=== PATIENT | male | born 1950 | race Caucasian/White ===

== ENCOUNTER 2017-01-12 12:11 | Inpatient (IN) | payer OTHER, MEDICARE ==
[~2017-01-12] VITALS: Ht 182.9 cm; Wt 104.1 kg
--- NOTE | ~2017-01-12 | CON ---
[place], [place] REPORT OF CONSULTATION NAME: YOCASTA MALIK UNIT #: [id number] ROOM: 520 DOCTOR: CANDIE DICKERSON MDPERRY BIRTHDATE: [birth year] DATE: 01/12/17 PULMONARY CONSULTATION, EVALUATION, AND MANAGEMENT REASON FOR CONSULTATION: Assess the patient for ongoing acute respiratory complaints. HISTORY OF PRESENT ILLNESS: This is a 66-year-old white male who was seen and examined on 01/12/2017. The patient admitted under the care of hospitalist services today as the patient has been reported ongoing symptoms of shortness of breath ongoing for the past 2 weeks. The symptoms of the patient has been noted progressively worse. The shortness of breath has been noted significantly worse associated with coughing with minimal sputum expectoration. It was noted diffuse wheezing for this patient, which occurring at rest and worsened with walking. The patient denies symptoms of chest pain. Denies symptoms of hemoptysis. He has been using oxygen supplementation at home 4 liter nasal cannula and [facility] adjuster. The patient was assessed in the hospital. The patient and has been admitted to the hospital for further medical management. REVIEW OF SYSTEMS: CONSTITUTIONAL: The patient noted symptoms of fatigue and tiredness. Denies symptoms of fever or chills. EYES: Denies any burning, redness, or tenderness. EAR, NOSE, THROAT: No sore throat, hoarseness, otalgia, postnasal drainage. CARDIOVASCULAR SYSTEM: Denies anginal pain, edema or pain of the lower extremities. GASTROINTESTINAL: Denies dysphagia, nausea, vomiting, diarrhea, abdominal pain, hematemesis, melena, or dysphagia. GENITOURINARY: Denies dysuria, suprapubic pain, hematuria, or urinary retention symptoms. MUSCULOSKELETAL: Denies acute joint pain, redness, or tenderness. SKIN: No lesions or rashes. CENTRAL NERVOUS SYSTEM: Denies dizziness, headache, diplopia or syncopal episodes. Remaining systems were reviewed. They were noted all negative. PAST MEDICAL HISTORY: 1. Advanced centrilobular emphysema. 2. Chronic hypoxic respiratory failure, use of oxygen 4 liter nasal cannula. 3. Essential hypertension. SOCIAL HISTORY: The patient lives at home. He has been noted with tobacco use up to 3 packs of cigarettes per day, which has been discontinued 7 years ago. 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 He denies any occupational related pulmonary exposure. Denies history of alcohol use or illicit drug use. FAMILY HISTORY: Father of complications of renal failure. The mother of complication of bronchial asthma. HOME MEDICATIONS: Listed as. 1. Norvasc 5 mg daily. 2. Aspirin 81 mg p.o. daily. 3. Symbicort 160/4.5 two puffs b.i.d. 4. Lisinopril 4 mg daily. [place], [place] REPORT OF CONSULTATION NAME: YOCASTA MALIK UNIT #: [id number] ROOM: [facility] [place] DOCTOR: PERRY SILVERIO MD BIRTHDATE: [birth year] 5. Spiriva 18 mcg inhalation daily. PHYSICAL EXAMINATION: GENERAL: This is a 66-year-old white male who has been currently noted awake and alert with distress and tachypnea at the time of the assessment. VITAL SIGNS: Height for the patient noted as 6 feet, weight of 229 pounds, BMI 31.1. Vital signs otherwise shows the temperature for this patient recorded normal, respiratory rate 26, heart rate of 104, mild sinus tachycardia, blood pressure of 179/85. Pulse oxygen saturation of the patient recorded on 4 L nasal cannula was 97% saturation. HEENT: Head was atraumatic. Eyes nonicterus. NECK: Supple. CARDIOVASCULAR SYSTEM: S1, S2 audible. LUNGS: Diffuse reduction of the breath sounds with expiratory wheezing, no crackles. ABDOMEN: Soft, nontender. Bowel sounds present. EXTREMITIES: No tenderness present. CENTRAL NERVOUS SYSTEM: The patient was noted without any gross focal deficit. Cranial nerves 2-12 intact. MUSCULOSKELETAL: No deformities. LABORATORY DATA: PT, PTT for the patient this morning was noted normal on admission. CBC this morning on admission, WBC count 7.3, hemoglobin 14, hematocrit 43.1 and platelet count was normal 166,000. CMP patient of this morning, BUN and creatinine was normal. CO2 of 38. CK-MB, troponin first set was normal. Lactic acid this morning was 0.9. Chest x-ray shows changes of COPD, hyperinflation of the lungs without any acute infiltration, small plate-like atelectasis patient noted in the lower lungs bilaterally. Arterial blood gas of the patient on 4 liters, pH of 7.32, pCO2 of 70.8, pO2 of 131. IMPRESSION: 1. The patient will be currently admitted to the hospital noted with acute severe exacerbation of chronic obstructive pulmonary disease, acute hypercapnic respiratory failure. 2. History of chronic hypoxic respiratory failure. 3. Chronic metabolic alkalosis secondary to hypercarbia. 4. Respiratory distress noted secondary to acute severe exacerbation of chronic obstructive pulmonary disease. 5. Acute tracheobronchitis with plate-like atelectasis to both lower lungs related to mucus impaction of the airways. 6. Past history of heavy nicotine abuse which has been discontinued 7 years or greater. 7. History of essential hypertension as well. PLAN OF TREATMENT: For further medical management of acute hypercapnic respiratory failure, chronic hypoxic respiratory failure. The patient has been ordered BiPAP with settings of 16/8. BiPAP will be continued on current settings for patient for the next couple of hours after that arterial blood gases will be done for further assessment of the management. The patient has been also ordered the bronchodilators with oxygen supplementation as well. The corticosteroids will be continued for the patient with the current dose. Bronchodilators have been ordered for this patient to be given every 4 hours. Solu-Medrol will be continued at 60 mg q.8 hours. Antibiotic will be continued. Obtain the sputum for Gram stain and culture. Other supportive therapy, plan of management and care. Usual treatment. Further treatment changes plan for this patient's [place], [place] REPORT OF CONSULTATION NAME: YOCASTA MALIK UNIT #: [id number] ROOM: [facility] [place] DOCTOR: PERRY SILVERIO MD BIRTHDATE: [birth year] management will be made for this patient based on the progression of the illness. Thank you for allowing me to participate in the care of this patient. PERRY SILVERIO MD CM:CONSTR:REPORT OF CONSULTATION 1026 01/14/17 1752 GEO JACKSON.[facility]
--- NOTE | ~2017-01-12 | PR ---
[place], [place] PROGRESS NOTE NAME: YOCASTA MALIK UNIT #: [id number] ROOM: 520 DOCTOR: PERRY SILVERIO MD BIRTHDATE: [birth year] DOS: 01/14/2017 PULMONARY FOLLOWUP SUBJECTIVE: He has been noted with copious amount of purulent secretions, expectoration this morning, which was noted nonproductive cough. He was noted with increased edema of the lower extremities as well as the shortness of breath, wheezing was resolving. Denies symptoms of chest pain. OBJECTIVE: VITAL SIGNS: Normal temperature, respiratory rate 20, heart rate 98, blood pressure 124/74. Pulse oxygen saturation on 3 liters on nasal cannula was 98% saturation recorded. HEENT: Examination shows no new change. NECK: Supple. CARDIOVASCULAR: S1, S2 audible. LUNGS: Noted with moderate decreased breath sounds, mild expiratory wheezing. No crackles. ABDOMEN: Soft, nontender. LABORATORY DATA: The blood culture showed no bacterial growth from the . BMP today: BUN 28, creatinine 1.36. IMPRESSION: 1. The patient with acute on chronic hypercapnic hypoxic respiratory failure. 2. Acute exacerbation of chronic obstructive pulmonary disease with severe acute purulent tracheobronchitis. 3. Edema of lower extremity, most likely from congestive heart failure, cor pulmonale combination would be considered. PLAN OF TREATMENT: Diuretic therapy. Monitor kidney function and electrolytes. Order the sputum for Gram stain and culture. Continue current dose of steroids, which was decreased yesterday. Continue bronchodilators and antibiotics. Usual care, other supportive plan of management and other care. [place], [place] PROGRESS NOTE NAME: YOCASTA MALIK UNIT #: [id number] ROOM: 520 DOCTOR: PERRY SILVERIO MD BIRTHDATE: [birth year] PERRY SCHREIBER MD CM:PNTRANS [id number] PERRY DICKERSON MD 01/15/17 0625 interface
--- NOTE | ~2017-01-12 | PN ---
[place], [place] PROGRESS NOTE NAME: YOCASTA MALIK UNIT #: [id number] ROOM: 520 DOCTOR: PERRY SILVERIO MD BIRTHDATE: [birth year] DATE: 01/15/17 PULMONARY PROGRESS NOTE SUBJECTIVE: The patient seen and examined on 01/15/2017. He has been noted with reduction of the respiratory symptoms, reduction of the edema of the lower extremity, coughing has been still noted with purulent sputum expectoration. The sputum culture preliminary results were reviewed and shows normal jocelyn initially. OBJECTIVE: VITAL SIGNS: For the patient which have been recorded showed the temperature noted normal, respiratory rate 18-20, heart rate of 98, blood pressure 142/72-132/72. Intake 1400, output 1700 mL approximately noted. Pulse oxygen saturation on 3 L nasal cannula oxygen supplementation, the saturation was noted as 95% saturation. HEENT: Showed no new change. NECK: Supple. CARDIOVASCULAR: S1, S2 audible. LUNGS: Noted without any wheezing or crackles at the present time. The breaths are noted mildly decreased. ABDOMEN: Soft, nontender. EXTREMITIES: Shows mild edema. LABORATORY DATA: Gram stain of the sputum, moderate white blood cells, epithelial cells with many gram-positive cocci in clusters with rare budding yeast. Preliminary normal jocelyn. BMP: BUN , creatinine 1.38. IMPRESSION: 1. The patient with acute on chronic hypoxic respiratory failure and hypercapnic respiratory failure, responding to treatment very well. 2. Suspected acute congestive heart failure, possible cor pulmonale, responding to treatment. PLAN OF TREATMENT: The patient could be considered discharge the patient on oral antibiotics, bronchodilator. The cultures to be monitored by the primary care attending from the [place] service to make any further change in antibiotics orally as necessary. 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 [place], [place] PROGRESS NOTE NAME: YOCASTA MALIK UNIT #: [id number] ROOM: 520 DOCTOR: PERRY SILVERIO MD BIRTHDATE: [birth year] PERRY SILVERIO MD CM:PNTRANS [id number] PERRY DICKERSON MD 01/18/17 1150 GEO JACKSON.R
--- NOTE | ~2017-01-12 | PR ---
[place], [place] PROGRESS NOTE NAME: YOCASTA MALIK UNIT #: [id number] ROOM: 520 DOCTOR: PERRY SILVERIO MD BIRTHDATE: [birth year] DOS: 01/13/2017 PULMONARY PROGRESS NOTE SUBJECTIVE: He has been noted better from yesterday as the patient has used the BiPAP. Respiratory symptoms for the patient have been improved. The arterial blood gases were done 2 hours post use of the BiPAP also showed improvement in the ventilatory status. OBJECTIVE: VITAL SIGNS: Shows heart rate was noted 91, blood pressure 163/83, respiratory rate 20, temperature was normal. Pulse oxygen saturation recorded on 3 liters nasal cannula 97% saturation. HEENT: Examination shows no new change. NECK: Supple. CARDIOVASCULAR SYSTEM: S1, S2 is audible. LUNGS: Noted with moderate reduction in breath sounds with reduced wheezing. There were no crackles. ABDOMEN: Soft, nontender. LABORATORY DATA: CBC this morning, normal WBC and platelet count, hemoglobin mildly decreased at 13.4. PT/PTT were noted normal today. CK-MB and troponin this morning shows CPK elevated at 640, MB 11.1, unknown significance of that. The troponin for the patient remains normal. IMPRESSION: 1. The patient who has been currently noted with ongoing acute exacerbation of chronic obstructive pulmonary disease with acute hypercapnic and chronic hypercapnic respiratory failure, acute bacterial bronchitis. 2. Chronic hypoxic respiratory failure history as well. Abnormal CPK for this patient and the CK-MB for the patient of unknown significance. PLAN OF TREATMENT: No change in the plan of management, except reduction of the corticosteroid dose has been ordered. Continue the BiPAP use with the bronchodilators, other treatment and the antibiotics. Supportive therapy, other plan of care. Usual treatments. [place], [place] PROGRESS NOTE NAME: YOCASTA MALIK UNIT #: [id number] ROOM: 520 DOCTOR: PERRY SILVERIO MD BIRTHDATE: [birth year] PERRY SCHREIBER MD CM:PNTRANS [id number] PERRY DICKERSON MD 01/13/17 1225 interface
[2017-01-12 12:15] VITALS: BP 161/100
[2017-01-12] MEDS ORDERED: SPIRIVA18 MCG PO (12:44)
[2017-01-12] MEDS ORDERED: SYMBICORT1 AE1 INH (12:45)
[2017-01-12] MEDS ORDERED: AMLODIPINE BESYL5 MG PO (12:45)
[2017-01-12] MEDS ORDERED: LISINOPRIL40 MG PO (12:45)
[2017-01-12] MEDS ORDERED: ASPIRIN FOR CHI81 MG PO (12:45)
[2017-01-12 12:52] LABS: BASO # 0.1 10*3/uL (0.0-0.1); BASO % 0.7 % (0.0-1.0); EOS # 0.1 10*3/uL (0.0-0.4); EOS % 1.9 % (1.0-4.0); HEMATOCRIT 43.1 % (42.0-52.0); IG # 0.1 10*3/uL (0.0-0.1); LYMPH # 1.3 10*3/uL (1.3-4.4); LYMPH % 17.7 % (27.0-41.0); MEAN CELL VOLUME 93.3 fl (80.0-94.0); MEAN CORPUSCULAR HGB 30.3 pg (27.0-31.0); MEAN CORPUSCULAR HGB CONC 32.5 g/dl (33.0-37.0); MONO # 0.8 10*3/uL (0.1-1.0); MONO % 10.7 % (3.0-9.0); NEUT % 68.3 % (47.0-73.0); PLATELET COUNT AUTOMATED 166 10*3/uL (130-400); RED BLOOD COUNT 4.62 10*6/uL (4.50-5.90); RED CELL DISTRI WIDTH 11.9 % (0-14.5); WHITE BLOOD COUNT 7.3 10*3/uL (4.8-10.8)
[2017-01-12 12:56] VITALS: BP 154/80
[2017-01-12 13:02] LABS: INTERNATIONAL NORM RATIO 0.9 (2.0-3.5); PROTHROMBIN TIME 9.6 SECONDS (9.0-12.4)
[2017-01-12 13:08] LABS: ALBUMIN 3.7 gm/dl (3.1-4.5); ALKALINE PHOSPHATASE 88 U/L (45-117); BILIRUBIN, TOTAL 0.5 mg/dl (0.2-1.0); BUN 10 mg/dl (7-24); C-REACTIVE PROTEIN 0.44 MG/DL (0-0.3); CARBON DIOXIDE 38 mmol/L (21-32); CHLORIDE 99 mmol/L (98-107); CPK 169 U/L (39-308); EST GLOM FILT AFRICAN AMERICAN > 60 ml/min; GLUCOSE 103 mg/dL (65-99); MAGNESIUM 1.9 mg/dL (1.5-2.1); POTASSIUM 3.6 mmol/L (3.5-5.1); SGOT/AST 21 IU/L (3-35); SGPT/ALT 17 U/L (12-78); SODIUM 142 mmol/L (136-145); TOTAL PROTEIN 6.9 gm/dL (6.4-8.2)
[2017-01-12 13:09] LABS: TROPONIN I < 0.015 ng/ml (<0.045)
[2017-01-12 13:20] VITALS: BP 179/85
[2017-01-12 14:00] VITALS: BP 167/96
[2017-01-12 15:52] VITALS: BP 140/87
[2017-01-12 16:06] LABS: ABG BASE EXCESS 7.3 mmol/L (-2.0-2.0); ABG CO2 CONTENT 37.8 mmol/L (23-27); ABG HCO3 35.6 mmol/l (22-26); ABG TEMPERATURE 98.7 F (98.0-99.0); ARTERIAL BLOOD GAS PH 7.322 (7.35-7.45)
[2017-01-12 18:29] LABS: CPK 243 U/L (39-308); TROPONIN I < 0.015 ng/ml (<0.045)
[2017-01-12 18:32] LABS: CKMB 5.5 ng/ml (0.5-3.6)
[2017-01-12 19:29] LABS: ABG BASE EXCESS 5.3 mmol/L (-2.0-2.0); ABG TEMPERATURE 97.8 F (98.0-99.0); ARTERIAL BLOOD GAS PH 7.334 (7.35-7.45)
[2017-01-12 20:43] VITALS: BP 155/83
[2017-01-13] VITALS: BP 134/77
[2017-01-13 00:53] LABS: CPK 453 U/L (39-308); TROPONIN I < 0.015 ng/ml (<0.045)
[2017-01-13 00:55] LABS: CKMB 8.7 ng/ml (0.5-3.6)
[2017-01-13 06:22] LABS: BASO % 0.1 % (0.0-1.0); HEMATOCRIT 41.1 % (42.0-52.0); HEMOGLOBIN 13.4 g/dl (14.0-18.0); IG # 0.1 10*3/uL (0.0-0.1); LYMPH # 0.7 10*3/uL (1.3-4.4); LYMPH % 8.9 % (27.0-41.0); MEAN CELL VOLUME 93.2 fl (80.0-94.0); MEAN CORPUSCULAR HGB 30.4 pg (27.0-31.0); MEAN CORPUSCULAR HGB CONC 32.6 g/dl (33.0-37.0); MONO # 0.2 10*3/uL (0.1-1.0); MONO % 2.3 % (3.0-9.0); NEUT % 87.9 % (47.0-73.0); PLATELET COUNT AUTOMATED 195 10*3/uL (130-400); RED BLOOD COUNT 4.41 10*6/uL (4.50-5.90)
[2017-01-13 06:52] LABS: BUN 15 mg/dl (7-24); CARBON DIOXIDE 33 mmol/L (21-32); CHLORIDE 98 mmol/L (98-107); CHOLESTEROL 196 mg/dL (<200); EST GLOM FILT AFRICAN AMERICAN > 60 ml/min; GLUCOSE 155 mg/dL (65-99); HDL CHOLESTEROL 66 mg/dl (40-60); LDL CHOLESTEROL 118 mg/dL (9-159); MAGNESIUM 1.7 mg/dL (1.5-2.1); PHOSPHOROUS 2.5 mg/dL (2.5-4.9); POTASSIUM 3.5 mmol/L (3.5-5.1); SODIUM 139 mmol/L (136-145); TRIGLYCERIDES 60 mg/dl (<150); VLDL CHOLESTEROL 12 mg/dL (6-40)
[2017-01-13 06:56] LABS: INTERNATIONAL NORM RATIO 0.9 (2.0-3.5)
[2017-01-13 06:57] LABS: CPK 640 U/L (39-308)
[2017-01-13 06:58] LABS: TROPONIN I < 0.015 ng/ml (<0.045)
[2017-01-13 07:00] LABS: FREE T4 1.02 ng/dl (0.76-1.46); THYROID STIM HORMONE (HS) 0.941 uIU/ml (0.358-4.75)
[2017-01-13 07:01] LABS: CKMB 11.1 ng/ml (0.5-3.6)
[2017-01-13 08:00] VITALS: BP 163/83
[2017-01-13 09:53] LABS: FOLIC ACID 3.58 ng/mL (>5.38); VITAMIN D, 25-HYDROXY 40.9 ng/mL (30-100)
[2017-01-13 12:00] VITALS: BP 137/74
[2017-01-13 16:00] VITALS: BP 141/74
[2017-01-13 20:00] VITALS: BP 127/79
[2017-01-14 00:05] VITALS: BP 124/66
[2017-01-14 07:05] LABS: CARBON DIOXIDE 38 mmol/L (21-32); CHLORIDE 96 mmol/L (98-107); EST GLOM FILT AFRICAN AMERICAN > 60 ml/min; GLUCOSE 144 mg/dL (65-99); POTASSIUM 3.7 mmol/L (3.5-5.1); SODIUM 142 mmol/L (136-145)
[2017-01-14 07:07] LABS: BUN 28 mg/dl (7-24)
[2017-01-14 08:00] VITALS: BP 124/74
[2017-01-14 10:28] LABS: ABG BASE EXCESS 6.7 mmol/L (-2.0-2.0); ABG CO2 CONTENT 35.1 mmol/L (23-27); ABG HCO3 33.3 mmol/l (22-26); ABG TEMPERATURE 97.7 F (98.0-99.0); ARTERIAL BLOOD GAS PH 7.382 (7.35-7.45)
[2017-01-14 11:45] VITALS: BP 135/83
[2017-01-14 16:00] VITALS: BP 145/86
[2017-01-14 19:41] VITALS: BP 138/61
[2017-01-15] VITALS: BP 142/72
[2017-01-15 06:21] LABS: BUN 37 mg/dl (7-24); CARBON DIOXIDE 39 mmol/L (21-32); CHLORIDE 99 mmol/L (98-107); EST GLOM FILT AFRICAN AMERICAN > 60 ml/min; GLUCOSE 152 mg/dL (65-99); SODIUM 142 mmol/L (136-145)
[2017-01-15 08:00] VITALS: BP 132/72
[2017-01-15] MEDS ORDERED: LEVAQUIN500 M2 PO (11:00)
[2017-01-15] MEDS ORDERED: PREDNISONE50 MG PO (11:00)
[2017-01-15] MEDS ORDERED: KLOR-CON M1010 ME1 PO (11:00)
[2017-01-15] MEDS ORDERED: LASIX40 MG PO (11:00)
[2017-01-15 12:00] VITALS: BP 140/75
== END 2017-01-15 12:00 | disposition home or self-care (01) | DRG 871 ==
LOC: ED 12:11 → 5E 13:18 → EDHOLD 13:18 → 5E 14:11
PROVIDERS: Internal Medicine; Student in an Organized Health Care Education/Training Program
PROC: 5A09357 Assistance with Respiratory Ventilation, Less than 24 Consecutive Hours, Continuous Positive Airway Pressure (ICD-10-PCS; principal; 2017-01-12)
DX: A41.9 Sepsis, unspecified organism (principal); J18.9 Pneumonia, unspecified organism; J96.21 Acute and chronic respiratory failure with hypoxia; J96.22 Acute and chronic respiratory failure with hypercapnia; J44.0 Chronic obstructive pulmonary disease with (acute) lower respiratory infection; J44.1 Chronic obstructive pulmonary disease with (acute) exacerbation; R65.20 Severe sepsis without septic shock; J20.9 Acute bronchitis, unspecified; I10 Essential (primary) hypertension; Z87.891 Personal history of nicotine dependence; Z82.5 Family history of asthma and other chronic lower respiratory diseases; Z84.1 Family history of disorders of kidney and ureter; Z79.82 Long term (current) use of aspirin; Z79.899 Other long term (current) drug therapy

== ENCOUNTER 2017-09-06 10:54 | Inpatient (IN) | payer MEDICARE ==
[~2017-09-06] VITALS: Ht 182.9 cm; Wt 107.1 kg
--- NOTE | ~2017-09-06 | PR ---
[place], [place] PROGRESS NOTE NAME: [facility]IK [id number] UNIT #: [id number] ROOM: [place] [address] DOCTOR: CANDIE DICKRESON MD,PERRY BIRTHDATE: [birth year] DOS: 09/08/2017 SUBJECTIVE: The patient remains on mechanical ventilator overnight. He has not been noted any acute new abnormalities. The mental status, the patient has been noted responding to vocal commands and noted agitated at times. He has been getting sedation with the combination intravenous Diprivan and Versed. The patient remains afebrile, has not been noted with any temperature elevation. Mild hypotension, the patient noted, most likely related to sedation corrected at the present time with adjustment of the Diprivan use. He was continued on IV Solu-Medrol for the patient bronchodilator treatment. The patient's feedings, otherwise noted well tolerated from the orogastric tube. OBJECTIVE: VITAL SIGNS: For the temperature remains normal, respiratory rate 12, height 76-83, blood pressure 117/70-73/45. Pulse oxygen saturation for the patient on 30% oxygen on mechanical ventilator this morning, assist control, volume control as 98% saturation recorded. HEENT: The patient currently intubated. Orogastric tube is in place. NECK: Supple. Head was atraumatic. CARDIOVASCULAR: S1, S2 is audible. LUNGS: The patient has moderate decreased breath sounds with mild scattered expiratory wheezing, no crackles. ABDOMEN: Soft, flat, nontender. EXTREMITIES: Without any edema. LABORATORY DATA: The echocardiogram for the patient that was done for this patient on 09/07/2017 shows small circumferential pericardial effusion with normal left and the right ventricle and trace mitral valve regurgitation. Prealbumin level for the patient this morning was noted at 15. CBC of today, WBC count 11.4, hemoglobin 8.7, hematocrit 27.0, platelet count 228,000. CMP this morning, BUN 31, creatinine 1.32, glucose 153. Phosphorus was 1.9. The calcium was 8.4. The Gram-stain of the endotracheal aspirate moderate white blood cells, no organism. Preliminary cultures were noted, normal jocelyn. The chest x-ray of patient shows endotracheal tube in appropriate position at the present time. The NG tube was noted in the stomach. Changes of severe COPD and emphysema were noted. There was no acute visible gross infiltration. There were no finding of congestive heart failure or pleural effusions visible. The arterial blood gas of the patient, pH of 7.45, pCO2 of 44, pO2 124. IMPRESSION: 1. The patient was being currently noted with an [id number] severe hypercapnic hypoxic respiratory failure as a result of acute exacerbation of chronic obstructive pulmonary disease and acute bronchitis. 2. Moderate protein-calorie malnutrition status as well. 3. Resolving acute kidney injury of the patient gradually as well. 4. History of past nicotine abuse as well. 5. Hypotension. His hypotension related to the Diprivan use. PLAN OF MANAGEMENT: Maximize nutrition support. Stop the sedation on the patient completely at this time until the patient noted fully awake. Once the [place], [place] PROGRESS NOTE NAME: YOCASTA MALIK JR UNIT #: [id number] ROOM: [place] [address] DOCTOR: PERRY SILVERIO MD BIRTHDATE: [birth year] patient noted awake and noted with appropriate mental status, he will be given a trial of CPAP of 5 pressure support or 10 for 2 hours for the assessment of consideration of liberation from mechanical ventilation today. Monitor culture results. Continue ventilator bundle management. Supportive therapy, plan of management. Dose of Solu-Medrol will be decreased. The patient from 60 mg q.8 hours to 40 mg q.8 hours. Continuation of the bronchodilators administration. Discontinue the vancomycin. The patient's lack of the current infection, which has been known for this patient, just bronchitis noted. The Levaquin should suffice for the treatment. There was no evidence of acute pneumonia. Continuation of the DVT prophylaxis and all other ventilator bundle management. Usual care. Monitoring for hypotension. The patient noted further hypotension, use of intravenous fluids will be ordered. Additional treatment changes will be made for the patient based on progression of the illness. Total time, the patient pulmonary critical evaluation and management for today was 35 minutes. PERRY SCHREIBER MD CM:PNTRANS [id number] PERRY DIKCERSON MD 09/09/17 1212 interface
--- NOTE | ~2017-09-06 | PR ---
[place], [place] PROGRESS NOTE NAME: YOCASTA MALIK JR [facility] #: [id number] UNIT #: [id number] ROOM: [facility]- DOCTOR: JOAQUINA CRAIG MD BIRTHDATE: [birth year] DOS: 09/11/2017 NEPHROLOGY NOTE SUBJECTIVE: The patient was seen and examined. Our service was reconsulted for acute kidney injury. Recent events were noted. The patient has a suspected GI bleed and is intubated on sedation. He is now on pressors. He has developed a rise in his creatinine as well as potassium. There also has been some discussions on possible transfer to a tertiary care center. PHYSICAL EXAMINATION: VITAL SIGNS: Showed temperature 98.4, pulse 86, respiratory rate 16, systolic blood pressure is running in the 90s-110s. GENERAL: He is critically ill, intubated, sedated on vent support. HEENT: Shows no JVD. Endotracheal tube is in place. HEART: Normal S1, S2. No rub, thrill or gallop. LUNGS: Diminished breath sounds. No wheeze. ABDOMEN: Soft, nontender. EXTREMITIES: Had trace edema. SKIN: Showed no rash. LABORATORY DATA: Hemoglobin 8.4, white count of 20.6, platelets 262, BUN 69, creatinine 1.65, glucose 156. Sodium 141, potassium 5.7, CO2 of 31, calcium 8.6, phosphorus 3.3, magnesium 2.3, albumin 2.2. IMPRESSION: 1. Acute kidney injury. The patient has had fluctuating creatinine levels. He had acute kidney injury that resolved and now developed worsening renal function once again likely due to prerenal factors with possible intrinsic acute tubular necrosis due to ischemia. Urine output appears to be adequate presently. Would recommend continued hemodynamic support. Dose medication for current creatinine clearance. Avoid further ischemia and avoid nephrotoxic agents. 2. Mild hyperkalemia. Would repeat laboratory data. It is noted he is being started on TPN. Would avoid potassium and TPN for now. 3. Respiratory failure. The patient is on vent support. 4. Shock. He is on pressors. Wean as able. 5. Anemia with question of gastrointestinal bleed. Transfuse as needed. I agree with plans to transfer to a tertiary care center due to the patient's numerous complex issues. [place], [place] PROGRESS NOTE NAME: YOCASTA MALIK JR UNIT #: [id number] ROOM: [facility] DOCTOR: RAFA BURK,JOAQUINA Chanel BIRTHDATE: [birth year] JOAQUINA CRAIG MD CM:PNSIDNEY [phone] JOAQUINA CRAIG MD 09/11/171716 interface
--- NOTE | ~2017-09-06 | PR ---
[place], [place] PROGRESS NOTE NAME: YOCASTA MALIK JR [facility] #: [id number] UNIT #: [id number] ROOM: [facility] DOCTOR: CANDIE DICKERSON MD,PERRY BIRTHDATE: [birth year] DOS: 09/12/2017 SUBJECTIVE: The patient has been noted comfortable at this time, sedated with IV Diprivan combination of Versed and other medications. The GI bleeding seem to be decreased for the patient as the bile material was noted aspirated in the suction container for this patient. He has not been noted any new acute hemodynamic instability, remains on Levophed 12 mcg/min for the hypotension management. The patient was continued on TPN as well for the nutrition support. The Protonix was continued 40 mg IV b.i.d. OBJECTIVE: VITAL SIGNS: For the patient which has been recorded shows temperature remains normal, respiratory rate of 11-14. The heart rate of 110 to 99. The blood pressure of 86/49 to 104/46. Intake for the patient was 4.5 liters, output 2.775 liters, positive 1.737 liters. The pulse oxygen saturation 30% oxygen 96% saturation. HEENT: The patient remained orally intubated. Gastric tube is in place. NECK: Supple. CARDIOVASCULAR: S1, S2 audible. LUNGS: Moderate reduction of the breath sounds noted in the lungs bilaterally. ABDOMEN: Noted chronic moderate obesity. Bowel sounds present without any tenderness. EXTREMITIES: Mild edema. LABORATORY DATA: Blood culture 09/06/2017 was noted as normal. CMP this morning, BUN 62, creatinine 1.45, glucose 208. Potassium 5.4. CBC: WBC count 24.1, hemoglobin 9.6, hematocrit 31.0, platelet count 268,000. The chest x-ray of the patient that was done this morning for routine assessment shows endotracheal tube tip was noted 8 cm above the blake level. The NG tube noted in the stomach. Small pleural fluid was identified on today's chest x-ray. The blood culture for the patient no bacterial growth. The arterial blood gas this morning, 30% oxygen, pH of 7.32, pCO2 of 56, pO2 of 89.9. IMPRESSION: 1. The patient who has been currently admitted to the hospital noted with persistent acute hypercapnia hypoxic respiratory failure. 2. Acute exacerbation of chronic obstructive pulmonary disease. 3. Mild acute kidney injury. 4. Upper gastrointestinal bleeding with suspected most likely secondary to gastritis. 5. Chronic obesity. 6. General anxiety disorder. 7. Anemia, which has been noted stable at the present time. 8. Protein-calorie malnutritional status. PLAN OF TREATMENT: Continue the peripheral parenteral nutrition for this patient with monitoring of fluid overload closely. The dose of the Solu-Medrol will be decreased to 40 mg daily from today. Continuation of the ventilator bundle management. Additional treatment changes will be continued for the patient based on progression of the illness. Mild hyperkalemia for the patient [place], [place] PROGRESS NOTE NAME: YOCASTA MALIK JR UNIT #: [id number] ROOM: [facility] DOCTOR: PERRY SILVERIO MD BIRTHDATE: [birth year] was noted, which has been noted stable. The patient would not require any major intervention at this time. Other usual care and plan of management. The patient not noted a candidate for liberation from mechanical ventilation assessment today because of current ongoing multiple medical illnesses. Small pleural fluid, which were noted the patient on the chest x-ray will be monitored. The endotracheal tube will be advanced about 4 cm for this patient to keep it at an appropriate level to prevent self or accidental extubation. Total time for the patient for pulmonary critical evaluation and management today was 38 minutes. PERRY SCHREIBER MD CM:PNTRANS [id number] PERRY DICKERSON MD 09/12/172301 interface
--- NOTE | ~2017-09-06 | PR ---
[place], [place] PROGRESS NOTE [id number] UNIT #: [id number] ROOM: [facility] DOCTOR: PERRY SILVERIO MD BIRTHDATE: [birth year] DOS: 09/10/2017 PULMONARY CRITICAL CARE EVALUATION AND MANAGEMENT. SUBJECTIVE: The patient remains on mechanical ventilator, has been given Diprivan, the dose has been decreased. The patient was given intermittent Haldol administration. He has been noted with intolerance to the feeding. He was also noted coffee-ground material which are resection of the NG tube at this time. The gastric occult blood was noted as positive. The patient was also noted with significant abdominal distention in the last 24 hours as well with hypoactive bowel sounds. The patient has not been noted with any significant hypotension. The tachycardia noted intermittently. OBJECTIVE: VITAL SIGNS: For the patient which has been recorded showed the temperature 99-98 degree Fahrenheit, respiratory rate of 17-23, heart rate 117-109. The blood pressure 127/66 to 114/66. Intake for the patient was recorded at 2.329 liters, the output was recorded as on 50 mL, pulse of 1.379 liters. Pulse ox saturation 35% oxygen mechanical ventilator, noted 98% saturation. HEENT: The patient remained orally intubated. Head was atraumatic. Eyes: No icterus. NECK: Short and obese. CARDIOVASCULAR: S1, S2 audible. LUNGS: Moderate decreased breath sounds, scattered wheezing. ABDOMEN: Noted with hypoactive bowel sounds. GENITOURINARY: For the patient, unchanged from previously and the patient has been sedated. LABORATORY DATA: CBC of this morning, WBC count 18.8, hemoglobin 9.4, hematocrit 30.3, platelet count 257,000. CMP this morning, BUN 51, creatinine 1.49, glucose 126, potassium was 5.6. Albumin 2.6, total protein of 5.8. Chest x-ray shows endotracheal tube in appropriate position. NG tube in the stomach. Significant hyperinflation changes of emphysema noted without any acute visible pulmonary infiltration, consolidation or any evidence of pleural effusion. IMPRESSION: 1. The patient with persistent acute exacerbation of chronic obstructive pulmonary disease with acute chronic hypercapnic hypoxic respiratory failure as a result of acute bronchitis. 2. Current abdominal distention. The patient with the stool for gastric occult positive noted possibility of GI bleeding would be considered secondary to gastritis or other etiologies. 3. Chronic obesity. 4. Suspected diagnosis of obstructive sleep apnea disorder. 5. Chronic metabolic alkalosis secondary to hypercarbia. PLAN OF TREATMENT: The patient will be continued with mechanical ventilation at this time, would not be considered a candidate for liberation from mechanical ventilation. The patient has been ordered CT scan of the chest, abdomen and [place], [place] PROGRESS NOTE [facility]: [id number] UNIT #: [id number] ROOM: [facility] DOCTOR: CANDIE DICKERSON MD,PERRY BIRTHDATE: [birth year] pelvis by the primary attending. At this time, I would not be making any changes in the patient's treatment which has provided for the respiratory failure management. Continue ventilator bundle management. The Lovenox might need to be discontinued because of current suspected GI bleeding. Mechanical thrombolysis. The patient will be ordered for the DVT prophylaxis. Close monitor hemoglobin and hematocrit. Usual care, other supportive therapy, plan of management and other care to be continued. Continue sedation for comfort. Continue bronchodilators. Total time pulmonary critical evaluation and management was 33 minutes. PERRY SCHREIBER MD CM:PNSIDNEY [id number] PERRY DICKERSON MD 09/10/17 1503 interface
--- NOTE | ~2017-09-06 | PR ---
[place], [place] PROGRESS NOTE NAME: YOCASTA MALIK JR [facility] #: [id number] UNIT #: [id number] ROOM: [facility] DOCTOR: CANDIE DICKERSON MD,PERRY BIRTHDATE: [birth year] DOS: 09/13/2017 SUBJECTIVE: The patient remains on mechanical ventilator. Sedation has been decreased for the patient and the Diprivan was completely discontinued. The patient was noted with somewhat mild tachypnea at that time, but not noted awake at this time. He has been noted with increased edema of the upper and the lower extremities. The patient's GI bleeding seemed to be stopped. At the present time, has not been noted with any further episodes of active hematemesis noted from the NG tube or melena was also recorded. The patient was continued with vasopressor therapy with increased requirement of the Levophed for the patient as well. OBJECTIVE: VITAL SIGNS: For the patient, which has been recorded showed the temperature of 101 degree Fahrenheit rectal temperature, respiratory rate of 14-18, heart rate of 114-127 with sinus tachycardia, blood pressure 82/40 to 105/51. Intake 4000 and the output was 2400 mL; out of that urinary output was 1600 mL, positive 1.614 L. Pulse oxygen 30% oxygen mechanical ventilator noted at 96% saturation. HEENT: The patient is currently intubated. Orogastric tube is in place. NECK: Supple. Head was atraumatic. CARDIOVASCULAR: S1, S2 audible. LUNGS: The patient was noted with mild decreased breath sounds. There was no wheezing or crackles at present time. ABDOMEN: Soft with obesity. EXTREMITIES: Shows 2 to 3+ pitting edema of the upper and lower extremities and also the other parts of the body as well. LABORATORY DATA: CMP this morning: BUN 66, creatinine 1.53, glucose 177. The remaining electrolytes were noted as normal. Normal sodium, potassium, chloride, and carbon dioxide. The CBC this morning: WBC count 26.2, hemoglobin 8.8, hematocrit 29.4, platelet count 274,000. The chest x-ray of the patient that was done, 1 view, this morning was reviewed. Endotracheal tube were noted in appropriate position with small basilar area of atelectasis. The patient was noted without any acute consolidation, infiltration, fluid overload with congestive heart failure. IMPRESSION: 1. The patient has been noted with persistent acute hypercapnic hypoxic respiratory failure with gradual decrease oxygen requirement. The arterial blood gas for the patient this morning, could not be done because of severe edema with several attempts made, which was noted ineffective to get arterial blood gases. 2. Acute exacerbation of chronic obstructive pulmonary disease. 3. Upper gastrointestinal bleed. The patient seemed to be better at this time. 4. Significant fluid overload for the patient was also noted with acute kidney injury. 5. Hypertension, requiring use of the vasopressors. 6. Leukocytosis, multifactorial. PLAN OF MANAGEMENT: The patient's steroids have been already discontinued at [place], [place] PROGRESS NOTE NAME: YOCASTA MALIK JR UNIT #: [id number] ROOM: [facility] DOCTOR: CANDIE DICKERSON MD,PERRY BIRTHDATE: [birth year] the present time completely. He has been currently getting sedation that will be continued to keep the patient comfortable. Bronchodilators to be continued, administered. Look and assess for any additional source of infection. GI to follow the patient for endoscopy clearance. The patient feeding from the orogastric tube will be obtained. In the meantime, continue the patient on TPN administration. In addition, vasopressors might be necessary for the patient to maintain a mean arterial pressure of 65 or greater for adequate perfusion. Other supportive plan of therapy and care. Usual treatment. The patient is not noted a candidate for liberation of mechanical ventilation at the present time. Other supportive therapy, plan of management and care. Usual treatment. Continue monitoring, management by the Nephrology for the patient and also to help with management of the overall fluid overload and current edema. Protein calorie malnutrition, which has been treated currently with nutrition support. Sedation for the comfort. Total time for pulmonary and critical care evaluation and management was 34 minutes. PERRY SCHREIBER MD CM:PNTRANS [id number] PERRY DICKERSON MD 09/14/17110 interface
--- NOTE | ~2017-09-06 | PR ---
[place], [place] PROGRESS NOTE NAME[id number] UN[facility] #: [id number] ROOM: [facility] DOCTOR: CANDIE DICKERSON MD,PERRY BIRTHDATE: [birth year] DOS: 09/11/2017 SUBJECTIVE: The patient seen and examined on 09/01/2017, remains on mechanical ventilator. Sedation has been continued of Haldol and Diprivan combination. Noted comfortable at this time. The orogastric tube remains in place which still was noted with the GI bleeding. The patient has been noted mild hypertension at time, but responding with the use of the intravenous fluid. The patient given 1 extra liter of fluid yesterday intravenously. He has been continued normal saline 100 mL an hour. The patient has been noted without any respiratory problem. No major change in mechanical ventilation was needed in the last 24 hours. The patient remains on hold because of current GI bleeding in the last 24 hours. OBJECTIVE: VITAL SIGNS: For the patient normal temperature, respiratory rate of 16-18, blood pressure of 88/45 to 109/59. Intake is 3.257 liters, output 750 mL. The pulse oxygen saturation on 30% oxygen 97% saturation recorded. HEENT: Examination shows head was atraumatic. Eyes nonicterus. NECK: Supple. CARDIOVASCULAR: S1, S2 audible. LUNGS: The patient was noted with moderate decreased breath sounds in the lungs bilaterally. ABDOMEN: Soft with [id number] obesity. Bowel sounds present. EXTREMITIES: The patient without any acute edema. LABORATORY DATA: Arterial blood gas, the first one was done is a venous gas of the patient. The repeat other arterial blood gas, which is arterial shows pH of 7.38, pCO2 of 50, pO2 118, 35% oxygen supplementation to assist control, volume control mechanical ventilation. Hemoglobin and hematocrit repeated yesterday evening noted, hemoglobin 9.1, hematocrit 29.4 for assessment of the GI bleeding. CMP this morning, BUN 69, creatinine 1.65, glucose 156. Potassium 5.7. Yesterday, CMP: BUN was recorded at 51. At that time, creatinine 1.49. Potassium was 5.6, mildly elevated. The patient had a CT scan of the chest, which was done without contrast, personally reviewed shows evidence of diffuse emphysema changes centrilobular without any acute pulmonary infiltration or other abnormalities. Infrarenal 3.9 x 3.4 cm abdominal aortic aneurysm was reported. CT scan of the abdomen finding. There were no other acute abnormalities described. Mild T8 compression reported of the bone with bony window review as well. IMPRESSION: 1. The patient was being currently noted with persistent acute severe hypercapnic hypoxic respiratory failure. 2. Acute exacerbation of chronic obstructive pulmonary disease, which has been responding to the treatment. 3. The patient with mild hypotension as well. 4. Acute ____ with worsening of the kidney functions related partially due to hypotension for this patient as well as intravascular volume depletion and GI bleeding combination with prerenal component. 5. The patient with moderate obesity. [place], [place] PROGRESS NOTE NAME[facility]: [id number] UNIT #: [id number] ROOM: [facility] DOCTOR: CANDIE DICKERSON MD,PERRY BIRTHDATE: [birth year] 6. Suspected obstructive sleep apnea disorder as well. 7. Gastrointestinal bleeding that still persists. PLAN OF MANAGEMENT: The patient's dose of IV Protonix has been changed to 40 mg b.i.d. GI consultation was requested. The patient was started on a preferred parental nutrition at this time. Other intravenous fluid might need to be discontinued as well to prevent the excessive fluid overload. Other supportive therapy, plan of management and care. Reduce the Solu-Medrol dose to 40 mg b.i.d. at this time as the wheezing has been improving. Continue all other additional ventilator bundle management. Usual care. Supportive therapy, plan of management and care. Continue bronchodilators as well. Titrate to keep the mean arterial pressure of 65 or greater. Management of the hyperkalemia as well. Total time for pulmonary critical evaluation and management was 36 minutes. PERRY SCHREIBER MD CM:PNTRANS [id number] [id number] PERRY DICKERSON MD 09/11/17 1449 interface
--- NOTE | ~2017-09-06 | CON ---
[place], [place] REPORT OF CONSULTATION NAME: [facility]IK JR [facility] [id number] UNIT #: [id number] ROOM: [place] [address] DOCTOR: PERRY SILVERIO MD BIRTHDATE: [birth year] DOS: 09/07/2017 CONSULTATION REQUESTED BY: Hospitalist services. REASON FOR CONSULTATION: Assess the patient with change in mental status, progressive acute hypercapnic and hypoxic respiratory failure, chronic hypercapnic and hypoxic respiratory failure. HISTORY OF PRESENT ILLNESS: An 66-year-old white male who [facility] The patient has been brought to the hospital from home by the ambulance. The patient reported having symptoms of increased shortness of breath and other respiratory symptoms occurring for the past 2 or 3 days. He has been noted with tachypnea with labored breathing and respiratory distress and poor air exchange as described by the EMS. He had been brought to the hospital and also noted with significant hypoxia. The patient was started on 100% oxygen nonrebreather mask. The patient has been admitted to the telemetry floor. He has noted significant hypercapnia with arterial blood gases, has been receiving the BiPAP, which has been refused by the patient intermittently. He has been tried on different setting of the BiPAP, but use of the BiPAP noted quite limited. The patient developed progressive unresponsiveness as he was transferred from the floor to the intensive care unit and noted quite drowsy for the patient with ineffective BiPAP treatment. He has been intubated and started on mechanical ventilation upon my order. Currently, the patient is intubated, started on the mechanical ventilation, assist control, volume control, and mechanical ventilation. Sedation has been given to the patient with the use of intravenous Diprivan as well as Versed p.r.n. administration. The intubation was done by the Anesthesia Department uneventfully. He has been noted with minimal secretion. The patient appeared to be watery, which has been suctioned out from the endotracheal tube for the patient post-intubation. He has not been noted any acute hemodynamic instability at this time post-intubation. The patient has been sedated, noted comfortable at this time. All the consultations contained on this patient history was obtained from review of the medical records by the other physician's note for the patient's primary care attending as well as the nursing notes. PAST MEDICAL HISTORY: 1. Reported with history of COPD, which has been managed at the [place]. 2. History of essential hypertension. 3. Chronic hypoxic respiratory failure, 3 liters of oxygen supplementation at home. PAST SURGICAL HISTORY: Reported as no surgery. SOCIAL HISTORY: The patient was noted with history of past alcohol use, which was discontinued from the past 12 years. The smoking, the patient noted at a younger age, up to 2 packs of cigarettes per day for 50 years. Tobacco cessation has been discontinued, approximately 12 years as listed in the history. [place], [place] REPORT OF CONSULTATION NAME: YOCASTA MALIK JR UNIT #: [id number] ROOM: [place] [address] DOCTOR: CANDIE DICKERSON MD,PERRY BIRTHDATE: [birth year] FAMILY HISTORY: For the patient reported as kidney disease as renal failure in the father and history of asthma in the mother. HOME MEDICATIONS: Listed as use of Norvasc, aspirin, azithromycin, Symbicort, Lasix, lisinopril, prednisone, unknown dose daily, and Spiriva. DRUG ALLERGIES: History was reported as no known drug allergies. PHYSICAL EXAMINATION: GENERAL: An 66-year-old white male patient, will be currently intubated, noted in the Intensive Care Unit comfortable without any distress. His height was recorded by the nursing staff as 6 feet, weight of 186 pounds, BMI 84. VITAL SIGNS: Temperature, the patient was noted 99.2 degree Fahrenheit on admission to normal temperature, respiratory rate range between 24-18. The heart rate was noted mild sinus tachycardia, maximum on admission 117. Current noted 92. Blood pressure ranging between 123/72-149/75. Intake is 1510, the output was 700 mL since last night. The pulse oxygen saturation on 3 liters nasal cannula 96% saturation. HEENT: Examination shows patient currently intubated, endotracheal tube #8-S[place] Leonean. Head was atraumatic. Gastric tube has been inserted. NECK: Supple. CARDIOVASCULAR SYSTEM: S1, S2 audible. LUNGS: The patient was noted without any crackles. Severe reduced breath sounds noted in the lungs bilaterally with moderate expiratory wheezing. There were no crackles. ABDOMEN: The patient was noted as soft, flat, and nontender. EXTREMITIES: The patient has some loss of muscle mass, but there were no focal deformities. SKIN: Visible skin. No lesions or rashes. CENTRAL NERVOUS SYSTEM: Cannot be examined, but the patient has not been reported any central nervous system problem for this patient on admission such as stroke. LABORATORY DATA: The lactic acid on admission yesterday 1.7. PT/PTT yesterday on admission normal. CBC on admission yesterday, WBC count 12.9, hemoglobin 11.3, hematocrit 36.0, platelet count normal. CMP of the patient on 09/06, BUN 25, creatinine 1.40, glucose 110, carbon dioxide 40, chloride of 95, potassium 3.3. Venous duplex of the lower extremities of the patient noted as no evidence of deep venous thrombosis, left lower extremity. Arterial blood gas 09/06, pH of 7.3, pCO2 of 70, pO2 of 147, on 30% oxygen. Arterial blood gas of the patient, pH of 7.29, pCO2 of 74, pO2 of 101 with 3 liter nasal cannula as well. Arterial blood gas of the patient that was done this morning, pH of 7.34, pCO2 of 65, pO2 38 is a venous gas. Arterial blood gas 40% oxygen on mechanical ventilator, 31% of 650 mL with 40% oxygen, pH of 7.38, pCO2 of 54, pO2 149 with assist control, volume control mechanical ventilation. The BMP of this morning, BUN 27, creatinine normal, glucose 165. CO2 of 39. CBC this morning: WBC count normal, hemoglobin 9.4, hematocrit 30.0, platelet count of 211,000, 95% segmented neutrophils. Chest x-ray that was done on admission shows changes of severe advanced COPD and [place], [place] REPORT OF CONSULTATION NAME: [facility]A [facility]IK JR [facility]: [id number] UNIT #: [id number] ROOM: [place] [address] DOCTOR: CANDIE DICKERSON MD,PERRY BIRTHDATE: [birth year] emphysema by the chest x-ray post-intubation. Mechanical ventilation is started the patient noted. Endotracheal tube was noted about 7 or 8 cm above the blake level. IMPRESSION: 1. The patient who has been currently admitted to the hospital with advanced chronic obstructive pulmonary disease with chronic hypoxic respiratory failure, and hypercapnia, presented to the hospital, noted acute severe hypoxic and hypercapnic respiratory failure, change in mental status. Currently intubated and started on mechanical ventilation. 2. Past history of tobacco use, which was discontinued approximately 12 years ago. 3. Acute bronchitis. The patient noted whether viral or bacterial at this time was unclear. 4. Appearance of the protein calorie malnutrition and cachexia for this patient was also noted, most likely secondary to the underlying chronic obstructive pulmonary disease. PLAN OF MANAGEMENT: The patient will be continued on IV Solu-Medrol for the patient high dose. The bronchodilator will be given every 4 hours. Ventilator bundle management for this patient has been ordered. The patient with use of the hepatic ducts rinse, use of IV Protonix and DVT prophylaxis. Order the prealbumin level to determine the nutrition level. Nutrition support was started. The patient with pulmonary care as well. The oxygen supplementation be decreased to maintain a saturation of 92% or greater. The patient's oxygen supplementation be decreased from 40% to 30% based on the current arterial blood gases. All other supportive therapy and plan of management. The endotracheal tube will be advanced by 3.5 cm to keep the tape at the appropriate level, about 3-4 cm above the blake level. Additional change in treatment will be made based on progression of the illness. Monitor culture results and endotracheal aspirates. The patient's pulmonary critical care evaluation and management and consultation. Total time for pulmonary critical care evaluation and management, consultation, and assessment 35 minutes. PERRY SCHREIBER MD CM:CONSTR:REPORT OF CONSULTATION 1136 09/07/17 1457 interface
--- NOTE | ~2017-09-06 | PR ---
[place], [place] PROGRESS NOTE NAME[id number] UNIT #: [id number] ROOM: [place] [address] DOCTOR: CANDIE DICKERSON MD,PERRY BIRTHDATE: [birth year] DOS: 09/09/2017 SUBJECTIVE: The patient remains on mechanical ventilator, sedated. His sedation had been discontinued yesterday. The patient was given a trial of CPAP of 5, pressure support of 10 about 30 minutes later, the patient developed significant agitation with the tachycardia as well as hypoxia. The oxygen supplementation was increased to 50% and same try was given again as the patient switched to assist control mode, volume control, and mechanical ventilation. Conscious sedation this morning. The patient has same episode about 60 minutes later. Currently, the patient receiving the mechanical ventilation, assist control mode with sedation resumed and getting the Diprivan as 40 mcg per gram per weight for the sedation purposes. He has been noted small amount of whitish mucus which has been sectioned out from the endobronchial tree by the nursing and respiratory staff. He remains afebrile as well. OBJECTIVE: VITAL SIGNS: For the patient shows a normal temperature, respiratory rate 12, heart rate 65-83, blood pressure 110/57 to 106/58. Pulse oxygen saturation recorded as 99%, 40% oxygen. HEENT: Examination shows head was atraumatic. Eyes nonicterus. NECK: Supple. CARDIOVASCULAR: S1, S2 audible. LUNGS: The patient was noted without any wheezing or crackles. Expiratory wheezing noted scattered in the lungs with moderate general reduction in the breath sounds. ABDOMEN: Flat, soft, nontender. EXTREMITIES: Without any edema. LABORATORY DATA: Culture endotracheal aspirate. Normal jocelyn from the 12th. CBC this morning, WBC count 11, hemoglobin 8.4, hematocrit 25.9, platelet count 133,000. CMP this morning, glucose 188, BUN 32, creatinine was normal. Total protein 5.2, albumin 2.3. The chest x-ray that was done this morning shows endotracheal tube was assessed. The endotracheal tube tip was noted about 6-7 cm above the blake level. NG tube were noted in the stomach. Changes of COPD, hyperinflation noted without any discrete pulmonary infiltration. IMPRESSION: 1. The patient who has been currently noted with acute severe exacerbation of chronic obstructive pulmonary disease, responding to treatment. 2. Resolving acute changes. The patient with mild azotemia still noted prerenal in origin after the IV hydration. 3. Relatively high riding endotracheal tube. 4. Difficulty of tolerating CPAP mode for assessment of possible liberation from mechanical ventilation trial because of agitation and other reasons. Mild azotemia was also noted. 5. Protein-calorie malnutrition status. PLAN OF TREATMENT: The patient will be started on Haldol 5 mg q. 1 hour next several hours with gradual reduction. Discontinuation of the Diprivan. If the Diprivan discontinued, the patient will be attempted again with the CPAP [place], [place] PROGRESS NOTE NAME: YOCASTA MALIK JR UNIT #: [id number] ROOM: [place] [address] DOCTOR: CANDIE DICKERSON MD,PERRY BIRTHDATE: [birth year] mode tomorrow for assessment readily. The patient on mechanical ventilation if fails that I might consider doing a bronchoscopy as well to help clear out secretions from the endobronchial tree. Continuation of Solu-Medrol. Continue maximizing nutritional status, which has been tolerated. Continue DVT prophylaxis and ventilator bundle management. No change in antibiotic will be needed. Advance the endotracheal tube by 3 cm further down to keep at the appropriate level. The patient's endotracheal tube was advanced previously, but noted again at the previous level prior to the advancement. Supportive therapy, plan of management care and other treatment. Usual medical management, other therapies. Make the changes in the medical management based on progression of the illness. Total time, the patient pulmonary critical evaluation and management for today's management is 32 minutes. PERRY SCHREIBER MD CM:PNTRANS [id number] PERRY DICKERSON MD 09/09/17 1350 interface
--- NOTE | ~2017-09-06 | PR ---
[place], [place] PROGRESS NOTE NAME: YOCASTA MALIK JR UNIT #: [id number] ROOM: [place] [address] DOCTOR: ROSAURA MCCLAIN DOUGLAS BIRTHDATE: [birth year] DOS: 09/07/2017 I was called to intubate the patient in ICU, called for hypercarbia, CO2 of 74. Failed multiple attempts at BiPAP. Most recent setting 12/07. RSI this patient, used 150 mg of propofol, followed by 30 mg of Zemuron and 10 mg of ephedrine. The patient tolerated well. Direct laryngoscopy accomplished, 1 attempt. Positive capnography. Positive bilateral breath sounds and chest x-ray ordered. Vent settings coming from Dr. Hinson and vent management ordered by Dr. Hinson. Jeremy Mcclain CM:PNTRANS [id number] ROSAURA MCCLAIN 09/07/17 1003 interface
--- NOTE | ~2017-09-06 | EKG ---
[place], [place] ELECTROCARDIOGRAM REPORT NAME: YOCASTA MALIK JR UNIT #: [id number] ROOM: [place] [address] DOCTOR: CANDIE DICKERSON MD,PERRY BIRTHDATE: [birth year] DOS: 09/06/2017 The electrocardiogram was done on 09/06/2017 at 11:50 a.m. Sinus tachycardia noted with a heart rate of 108 beats per minute. PERRY SCHREIBER MD CM:EKGRPT:ELECTROCARDIOGRAM REPORT [id number] PERRY DICKERSON MD
--- NOTE | ~2017-09-06 | PR ---
[place], [place] PROGRESS NOTE NAME: [facility]: [id number] UNIT #: [id number] ROOM: [facility] DOCTOR: CANDIE DICKERSON MD,PERRY BIRTHDATE: [birth year] DOS: 09/14/2017 SUBJECTIVE: The patient remains unconscious with decreased responsiveness. He has been noted with some tachypnea on mechanical ventilator. He has been continued with vasopressor therapy and other medical management was continued in the last 24 hours. Family member had decided the patient to have a terminal wean because of the progressive multiple medical illnesses and not responding to the treatment. The patient was assessed at the bedside today. OBJECTIVE: VITAL SIGNS: Showed the temperature rectal 100.2 degrees Fahrenheit, respiratory rate of 24 to 30, heart rate of 114 to 115, blood pressure of 84/40 to 142/60 this morning. HEENT: Currently orally intubated. NECK: Supple. CARDIOVASCULAR: S1, S2 is audible. LUNGS: The patient was noted with moderate general reduction in the breath sounds bilaterally. ABDOMEN: Noted with decreased bowel sounds. EXTREMITIES: The patient noted with a significant area of mottling of the skin of both lower extremities. LABORATORY DATA: CBC today: WBC count 27.5, hemoglobin 8.1, hematocrit 26.3, platelet count 236,000. CMP this morning, BUN 57, creatinine 1.27. AST 45, albumin 2.2. IMPRESSION: 1. The patient who has been currently noted with persistent severe acute hypercapnic hypoxic respiratory failure. 2. Acute brain failure for the patient decreased responsiveness of the patient, possibly due to stroke or other etiology, metabolic encephalopathy would be considered. 3. Mild azotemia secondary to the current third spacing of the fluid. 4. ____. The patient unable to determine exactly the etiology of that. 5. Previous GI bleeding as well. PLAN OF MANAGEMENT: At this time, the patient's care will be considered terminal irreversible patient with multiple ongoing acute progressive multiorgan system injury. Concur with the assessment by the primary care physician. The patient's current terminal wean that could be done today upon desire of the family members. To make the patient more comfortable, he will be started on morphine sulphate 3 mg per hour initially for about an hour with addition of morphine, which was given previously. Once the patient's respiratory rate decreased to a comfortable level, he will be liberated from mechanical ventilation. The patient vasopressor therapy has been already discontinued. All other medication would be discontinued. The Ativan could be given 1 mg q.2 hours p.r.n. for comfort as well or agitation. The assessment and management has been discussed with the patient's family members. Several of them has been present in the room with the patient and they were comfortable with the current decision. [place], [place] PROGRESS NOTE NAME: YOCASTA MALIK JR UNIT #: [id number] ROOM: [facility] DOCTOR: PERRY SILVERIO MD BIRTHDATE: [birth year] PERRY SCHREIBER MD CM:KERRY [id number] PERRY DICKERSON MD 09/15/17 0842 interface
[~2017-09-06 10:54] MED LIST: AMLODIPINE BESYL5 MG PO; ASPIRIN FOR CHI81 MG PO; KLOR-CON M1010 ME1 PO; LASIX40 MG PO; LEVAQUIN500 M2 PO; LISINOPRIL40 MG PO; PREDNISONE5 MG PO; PREDNISONE50 MG PO; SPIRIVA18 MCG PO; SYMBICORT1 AE1 INH
[2017-09-06 11:22] VITALS: BP 110/72
[2017-09-06 11:36] LABS: HEMOGLOBIN 11.3 g/dl (14.0-18.0); MEAN CORPUSCULAR HGB 30.5 pg (27.0-31.0); MEAN CORPUSCULAR HGB CONC 31.4 g/dl (33.0-37.0); MEAN PLATELET VOLUME 10.9 fl (9.6-12.3); PLATELET COUNT AUTOMATED 243 10*3/uL (130-400); RED BLOOD COUNT 3.71 10*6/uL (4.50-5.90); RED CELL DISTRI WIDTH 13.3 % (0-14.5); WHITE BLOOD COUNT 12.9 10*3/uL (4.8-10.8)
[2017-09-06 11:44] LABS: ACT PARTIAL THROMBO TIME 24.3 SECONDS (20.8-31.5); INTERNATIONAL NORM RATIO 0.9 (2.0-3.5)
[2017-09-06 11:53] LABS: PLATELET SUFFICIENCY NORMAL (NORMAL); POLYCHROMASIA SLIGHT; STOMATOCYTE FEW; TOTAL CELLS COUNTED 100 #CELLS
[2017-09-06 11:54] LABS: ALBUMIN 2.9 gm/dl (3.1-4.5); ALKALINE PHOSPHATASE 84 U/L (45-117); BUN 25 mg/dl (7-24); CHLORIDE 95 mmol/L (98-107); LIPASE 104 U/L (73-393); POTASSIUM 3.3 mmol/L (3.5-5.1); SGOT/AST 17 IU/L (3-35); SGPT/ALT 25 U/L (12-78); SODIUM 140 mmol/L (136-145); TOTAL PROTEIN 6.8 gm/dL (6.4-8.2)
[2017-09-06 11:57] LABS: TROPONIN I < 0.015 ng/ml (<0.045)
--- NOTE | 2017-09-06 14:20 | NUR ---
A 66, admitted to 5E, under the services of LESLYE Holley DO with a diagnosis of COPD EXACERBATION AND CELLULITIS OF LEFT LEG. Chief complaint is SHORTNESS OF BREATH AND SWELLING AND REDNESS TO LEFT LEG. Patient arrived via stretcher from ER. Monitor applied. Initial assessment completed. Vital signs taken and recorded. LESLYE HOLLEY DO notified of admission to the unit. Orders received. See assessment for past medical history, medications and allergies. Patient and/or family oriented to unit. [facility]. Clothing/patient valuable form completed. RODRIGUEZ GILL
--- NOTE | 2017-09-06 15:05 | NUR ---
Spoke with Desiree at the [facility] in [facility] regarding need for medication list. States she will fax it over.
--- NOTE | 2017-09-06 15:10 | NUR ---
DR. SCHREIBER NOTIFIED OF CONSULT.
[2017-09-06] MEDS ORDERED: ZITHROMAX250 MG PO (15:11)
[2017-09-06] MEDS ORDERED: LASIX20 MG PO (15:12)
--- NOTE | 2017-09-06 15:35 | NUR ---
Spoke with Dr. Velasquez regarding pt bp of 90/60 and pt SOB, and respiratory therapists statements that pt could not tolerate wearing mask for bipap. Pt is on 4l at this time with a SPO2 of 95%. Asked if he wanted ABG's drawn. States he will order them. Respiratory notified.
[2017-09-06 15:53] LABS: ABG BASE EXCESS 9.1 mmol/L (-2.0-2.0); ABG HCO3 36.6 mmol/l (22-26); ABG O2 SATURATION 99.1 % (95-97); ARTERIAL BLOOD GAS PH 7.337 (7.35-7.45)
--- NOTE | 2017-09-06 15:59 | NUR ---
Dr. Velasquez and Dr. Hinson notified of ABG results obtained. Reviewed results with Dr. Hinson. Dr. Hinson ordered bipap settings 16/10 for 4 hours and repeat ABG's. Notified Dr. Hinson that pt was having trouble tolerating bipap.
[2017-09-06 16:00] VITALS: BP 112/76
[2017-09-06 20:00] VITALS: BP 149/75
--- NOTE | 2017-09-06 20:07 | NUR ---
RESTING AT PRESENT, EYES CLOSED. PT. ON BIPAP AT PRESENT.
--- NOTE | 2017-09-06 20:34 | NUR ---
RESP. HERE TO DO ABG'S. PT. SITTING UP LEANING OVER THE BEDSIDE STAND PURSE LIP BREATHING. VERY POOR AIR EXCHANGE VERY. PT. WAS REMOVED FROM BIPAP PER PT. REQUEST AT THIS TIME WAS PLACED ON 4L O2 NC BY RESPIRATORY.
[2017-09-06 20:48] LABS: ABG BASE EXCESS 9.6 mmol/L (-2.0-2.0); ABG HCO3 36.6 mmol/l (22-26); ABG O2 SATURATION 98.5 % (95-97); ARTERIAL BLOOD GAS PCO2 67.4 mmHg (35-45); ARTERIAL BLOOD GAS PH 7.354 (7.35-7.45)
--- NOTE | 2017-09-06 21:14 | NUR ---
CALLED DR. SCHREIBER AND NOTIFIED HIM OF PT. ABG'S AND CURRENT CONDITION OF PURSE LIPPED, LAYING OVER BEDSIDE TABLE AND VERY POOR AIR EXCHANGE. ORDER RECIEVED TO TRANSFERRED PT. TO KEEP PT. ON BIPAP AND IF NEED BE INTUBATION.
--- NOTE | 2017-09-06 21:30 | NUR ---
2200 MEDICATIONS GIVEN. RESP. HERE TOOK BIPAP TO ICU 10. MLAB HERE DID BLOOD DRAW. PT. TAKEN VIA BED TO ICU 10 WITH BELONGINGS. NURSE TO NURSE REPORT GIVEN.
--- NOTE | 2017-09-06 22:10 | NUR ---
PATIENT ANXIOUS AND SHORT OF BREATH WITH PURSED LIP BREATHING, EXTREMELY DIMINISHED BREATH SOUNDS, GRUNTING WHILE SPEAKING REFUSING BIPAP AND BREATHING TREATMENT. EXPLAINED NEED FOR BREATHING TREATMENT TO OPEN UP AIRWAYS AND BIPAP TO BLOW OFF EXCESS CO2. PATIENT VERBALIZES UNDERSTANDING. DR. WAYNE NOTIFIED OF ANXIOUSNESS WHILE USING BIPAP AND NEW ORDER RECEIVED FOR IV ATIVAN. BREATH SOUNDS LESS DIMINISHED WITH I&E WHEEZES NOTED POST BREATHING TREATMENT. PRODUCTIVE COUGH NOTED. ATIVAN IMMEDIATELY EFFECTIVE TO REDUCE ANXIETY AND BIPAP INITIATED 16/10 FIO2 @ 30% POX DECREASED TO 83% FIO2 INCREASED TO 50% POX INCREASED TO 93% WILL MONITOR. RAMOS SOSA RN
[2017-09-07] VITALS (61 sets, daily range): BP systolic 63–127; BP diastolic 40–101
--- NOTE | 2017-09-07 03:35 | NUR ---
PATIENT PULLED OFF BIPAP MASK AND STATES HE NEEDS TO URINATE. ASSISTED PATIENT TO SIDE OF BED TO USE URINAL, PATIENT DROWSY, MISSED URINAL AND URINATED ON FLOOR. PATIENT ASSISTED BACK INTO BED AND ABG'S OBTAINED FOLLOWING TOLERATING BIPAP WELL FOR APPROXIMATELY 5 HOURS. CRITICAL RESULT RECEIVED FROM LAB OF PCO2 74.6. RAMOS SOSA RN
[2017-09-07 03:57] LABS: ABG BASE EXCESS 6.9 mmol/L (-2.0-2.0); ABG O2 SATURATION 97.4 % (95-97); ARTERIAL BLOOD GAS PH 7.291 (7.35-7.45)
[2017-09-07 04:01] LABS: ARTERIAL BLOOD GAS PCO2 74.6 mmHg (35-45)
--- NOTE | 2017-09-07 04:10 | NUR ---
DR. SCHREIBER NOTIFIED OF WORSENING IN ABG RESULTS DESPITE TOLERATING THE BIPAP WELL FOR APPROXIMATELY 5 HOURS. NEW ORDERS RECEIVED. RAMOS SOSA RN
--- NOTE | 2017-09-07 04:20 | NUR ---
DR. WAYNE HERE AND UPDATED ON PATIENT'S CONDITION AND NEW ORDERS TO INTUBATE PATIENT UPON ANESTHESIA'S ARRIVAL IN AM PER DR. SCHREIBER'S ORDERS. NEED FOR INTUBATION DISCUSSED WITH PATIENT WHO VERBALIZES UNDERSTANDING AND VERBALLY AGREES TO INTUBATION BY ANESTHESIA IN THE AM. NEW ORDER RECEIVED TO MEDICATE PATIENT WITH IV ATIVAN TO DECREASE ANXIETY AND ASSIST PATIENT'S TOLERATION OF BIPAP. ATIVAN IMMEDIATELY EFFECTIVE AND BIPAP PLACED PER RESPIRATORY THERAPY. WILL CONTINUE TO MONITOR PATIENT. RAMOS SOSA RN
[2017-09-07 06:08] LABS: BUN 27 mg/dl (7-24); CHLORIDE 98 mmol/L (98-107); CHOLESTEROL 160 mg/dL (<200); CREATININE 1.22 mg/dL (0.70-1.30); PHOSPHOROUS 3.2 mg/dL (2.5-4.9); SODIUM 140 mmol/L (136-145)
[2017-09-07 06:20] LABS: HDL CHOLESTEROL 48 mg/dl (40-60); LDL CHOLESTEROL 93 mg/dL (9-159); THYROID STIM HORMONE (HS) 0.213 uIU/ml (0.358-4.75); TRIGLYCERIDES 94 mg/dl (<150); VLDL CHOLESTEROL 19 mg/dL (6-40)
[2017-09-07 06:22] LABS: POTASSIUM 4.7 mmol/L (3.5-5.1)
--- NOTE | 2017-09-07 06:50 | NUR ---
DR. CARMONA AWARE OF DR. SCHREIBER'S ORDERS FOR ELECTIVE INTUBATION THIS MORNING. RAMOS SOSA RN
[2017-09-07 06:57] LABS: HEMOGLOBIN 9.4 g/dl (14.0-18.0); MEAN CELL VOLUME 97.4 fl (80.0-94.0); MEAN CORPUSCULAR HGB 30.5 pg (27.0-31.0); MEAN CORPUSCULAR HGB CONC 31.3 g/dl (33.0-37.0); MEAN PLATELET VOLUME 11.1 fl (9.6-12.3); PLATELET COUNT AUTOMATED 211 10*3/uL (130-400); RED BLOOD COUNT 3.08 10*6/uL (4.50-5.90); RED CELL DISTRI WIDTH 13.2 % (0-14.5); WHITE BLOOD COUNT 10.6 10*3/uL (4.8-10.8)
--- NOTE | 2017-09-07 07:00 | NUR ---
AWAITING ANESTHESIA TO INTUBATE. PATIENT IS WEARING THE BIPAP 16/10 50%. PT ALERT & FOLLOWING COMMANDS/AGREEING TO INTUBATION.
[2017-09-07 07:35] LABS: TOTAL CELLS COUNTED 100 #CELLS; TOXIC GRANULATION SLIGHT
--- NOTE | 2017-09-07 07:36 | NUR ---
Inf[employer] consent obtained from patient for elective intubation. Patient intubated with 8 Peruvian endotracheal tube orally X 1 attempts. Patient sedated with ZEMURON & PROPOFOL Respiratory therapy at bedside. Crash cart with emergency drugs available. Endotracheal tube inflated with 10cc's. Lungs auscultated for equality of breath sounds. Tube secured with Head gear at 22cm's. at level of LIP. Patient tolerated procedure WELL. Portable chest X-ray obtained and reviewed for tube placement. Patient connected to ventilator CMV mode, 650 tidal volume, 50 FIO2, 5 PEEP, and 0 pressure support. INTUBATED BY ANESTHESIOLOGY. #16 NEWSOME INSERTED WITHOUT DIFFICULTY & 300cc URINE OBTAINED (SPECIMENS SENT) and #18 OGT PLACED WITHOUT DIFFICULTY. CXR ORDERED AND DONE FOR PLACEMENT. sPUTUM SPECIMEN OBTIANED AND SENT DIPRIVAN STARTED FOR SEDATION HALLE RICHARDS
[2017-09-07 07:37] LABS: PLATELET SUFFICIENCY NORMAL (NORMAL); POLYCHROMASIA SLIGHT
[2017-09-07 07:47] LABS: VITAMIN D, 25-HYDROXY 24.8 ng/mL (30-100)
--- NOTE | 2017-09-07 08:05 | NUR ---
INCREASED DIPRIVAN DRIP TO 50mcg D/T PATIENT AGGITATION & PULLING AT LINES
--- NOTE | 2017-09-07 08:25 | NUR ---
Arterial blood gases drawn from right radial after 2 attempt. The procedure was explained to the patient. The Ernie's test was performed with satisfactory results. The artery was palpated. Xfnyoep-nmzebmeu-uyidugx prep to site. The specimen was obtained and sent to the lab on ice. Digital pressure applied x 5 minutes. Pressure dressing applied. No bleeding or hematoma. Pulses equal bilaterally. HALLE RICHARDS
[2017-09-07 08:38] LABS: ABG BASE EXCESS 7.7 mmol/L (-2.0-2.0); ABG HCO3 34.7 mmol/l (22-26); ABG O2 SATURATION 71.3 % (95-97); ARTERIAL BLOOD GAS PH 7.344 (7.35-7.45)
[2017-09-07 08:42] LABS: ARTERIAL BLOOD GAS PO2 38.7 mmHg (80-90)
--- NOTE | 2017-09-07 08:45 | NUR ---
Arterial blood gases drawn from left brachial after 1 attempt as the last set were venous . The procedure was explained to the patient. The Ernie's test was performed with satisfactory results. The artery was palpated. Xtefemd-wgbjjlbw-pyilixe prep to site. The specimen was obtained and sent to the lab on ice. Digital pressure applied x 5 minutes. Pressure dressing applied. No bleeding or hematoma. Pulses equal bilaterally. HALLE RICHARDS
[2017-09-07 09:08] LABS: ABG BASE EXCESS 6.3 mmol/L (-2.0-2.0); ABG O2 SATURATION 99.2 % (95-97); ARTERIAL BLOOD GAS PCO2 54.3 mmHg (35-45); ARTERIAL BLOOD GAS PH 7.386 (7.35-7.45)
--- NOTE | 2017-09-07 09:50 | NUR ---
Arterial blood gases drawn from left brachial after 1 attempt. The procedure was explained to the patient. The Ernie's test was performed with satisfactory results. The artery was palpated. Zosbszx-fysqsrnr-fzdzckz prep to site. The specimen was obtained and sent to the lab on ice. Digital pressure applied x 5 minutes. Pressure dressing applied. No bleeding or hematoma. Pulses equal bilaterally. diprivan drip at 30MCG d/t pressure down. HALLE RICHARDS
[2017-09-07 09:56] LABS: ABG BASE EXCESS 6.5 mmol/L (-2.0-2.0); ABG HCO3 32.6 mmol/l (22-26); ABG O2 SATURATION 99.1 % (95-97); ARTERIAL BLOOD GAS PCO2 57.1 mmHg (35-45); ARTERIAL BLOOD GAS PH 7.373 (7.35-7.45)
--- NOTE | 2017-09-07 10:00 | NUR ---
Patient is intubated at this time. Discharge plan undecided.
--- NOTE | 2017-09-07 10:00 | NUR ---
Versed given for aggitation. 1015 Versed effective.
[2017-09-07 10:06] LABS: BILIRUBIN NEGATIVE (NEGATIVE); BLOOD NEGATIVE (NEGATIVE); CLARITY CLEAR (CLEAR); COLOR YELLOW (YELLOW); GLUCOSE NEGATIVE (NEGATIVE); KETONE TRACE (NEGATIVE); LEUKO ESTERASE NEGATIVE (NEGATIVE); NITRITE NEGATIVE (NEGATIVE); SPECIFIC GRAVITY 1.025 (1.005-1.030); UROBILINOGEN 0.2 E.U./dl (0.2-1.0)
--- NOTE | 2017-09-07 10:37 | NUR ---
ETT adjusted (inserted 3.5cm) per order of Dr Hinson and no repeat CXR needed. Dr Espinoza here and case discussed. IVF bolus of 400cc started followed by another 1L bolus then call with BP
--- NOTE | 2017-09-07 10:47 | NUR ---
HELENA MANNYOCASTA Irby [id number] Please refer to the physician's history and physical for past medical history, comorbid conditions, and allergies. Diagnosis: CELLULITIS OF LEFT LOWER EXTREMITY COPD EXACERBATI Jesse Score: 18,AT RISK WOUND DESCRIPTIONS: Location of the wound: left ac Type of wound: skin tear Thickness: Partial Size: 2.5cm x 0.3cm x 0.1cm Tunneling: none Undermining: none Sinus Tract: none Presence of Exudate: Serosanguineous Amount: Light Color: Red Odor: None Periwound Skin Appearance: Normal Wound edges: approximated Pain (associated with wound): none at time of assessment How does patient state this happened? pt unable to state how this happened Surface the patient is resting on: XPRT SKIN PREVENTION RECOMMENDATION: 1. Pressure redistribution support surface as appropriate 2. Elevate heels 3. Remove boots/TEDS every shift and reapply 4. Head of bed 30 degrees as tolerated 5. Assess nutrition and hydration 6. Manage moisture 7. Avoid the use of containment devices while in bed 8. Use absorptive products on surfaces limit layers of linens on bed 9. Turn and reposition every 1-2 hours in bed and every 1 hour in chair as tolerated 10. Weight shifts every 15 minutes while up in chair 11. Offloading with pillows or device to keep heels elevated off bed 12. Monitor skin at least every shift 13. Inspect under medical devices twice a day WOUND TREATMENT RECOMMENDATIONS: Skin tear guidelines left ac nss, sureprep, versatel, hydrogel, optifoam gentle.
[2017-09-07 11:13] LABS: BACTERIA 1+
--- NOTE | 2017-09-07 14:52 | NUR ---
TUBE FEEDING STARTED AT 20cc/hr PER ORDERS
--- NOTE | 2017-09-07 16:00 | NUR ---
SENIARIVAN DRIP AT 30mcg/15.3cc. IVF INFUSING VIA ASYMPTOMATIC SITES. NEWSOME FOR SMALL AMOUNTS OF URINE.
--- NOTE | 2017-09-07 17:34 | NUR ---
DIPRIVAN DECREASED TO 25mcg/12.8cc TO SEE IF HE WILL STILL REST. DR ONEIL NOTIFIED OF URINE OUTPUT 100cc IN 4 HOURS.
--- NOTE | 2017-09-07 18:24 | NUR ---
ANSWERING SERVICE FOR DR GALINDO CALLED ABOUT CONSULT.
--- NOTE | 2017-09-07 18:30 | NUR ---
SPOKE WITH DR MATEO CARLIN.
--- NOTE | 2017-09-07 19:00 | NUR ---
MED REC WAS NOT UPDATED THE [facility] THE GIRL FRIEND DID NOT REMEMBER THE BOTTLES OR LIST. PATIENT IS INTUBATED AND UNABLE TO REVIEW, NOTHING IN MED CLAIM HISTORY.
--- NOTE | 2017-09-07 19:20 | NUR ---
24 HOUR CHART CHECK COMPLETED.
--- NOTE | 2017-09-07 19:56 | NUR ---
EXCELLENT BLOOD RETURN NOTED FROM DOPAMINE SITE RAN. BP IMPROVED SINCE ALBUMIN INFUSING AND DOPAMINE AT 5 MICS. WITH ANY CARE, PT BECOMES AGITATED.
--- NOTE | 2017-09-07 23:25 | NUR ---
TOLERATING DECREASE OF DOPAMINE TO 2.5MCG/KG/MIN. MAP REMAINS >65 AND SBP>90 AT THIS TIME. URINE OUTPUT HAS NOTABLY INCREASED AND IS STRAW COLORED.
--- NOTE | 2017-09-07 23:46 | NUR ---
COMPLETE BATH AND BED LINEN CHANGE DONE. PT TOLERATED FAIRLY WELL. VSS.
[2017-09-08] VITALS (25 sets, daily range): BP systolic 73–129; BP diastolic 45–70
--- NOTE | 2017-09-08 04:21 | NUR ---
MORPHINE GIVEN AT 0320 FOR APPEARANCE OF DISCOMFORT AND PT NODDED WHEN ASKED IF HE HAD PAIN IN HIS LEG....APPEARS TO BE EFFECTIVE...PT APPEARS RELAXED. DOPAMINE HAD BEEN TITRATED OFF BUT IS BACK ON AT 2.5MCG/KG/MIN SBP DIPPED INTO THE 70'S. WILL CONTINUE TO MONITOR CLOSELY.
--- NOTE | 2017-09-08 04:49 | NUR ---
EXCELLENT BLOOD RETURN CONTINUES FROM IV SITE WITH DOPAMINE INFUSING. BP NOW 119/64.
[2017-09-08 06:09] LABS: ALBUMIN 2.6 gm/dl (3.1-4.5); ALKALINE PHOSPHATASE 67 U/L (45-117); BASO % 0.2 % (0.0-1.0); BUN 31 mg/dl (7-24); CHLORIDE 105 mmol/L (98-107); CREATININE 1.32 mg/dL (0.70-1.30); HEMOGLOBIN 8.7 g/dl (14.0-18.0); LYMPH # 0.4 10*3/uL (1.3-4.4); LYMPH % 3.8 % (27.0-41.0); MEAN CELL VOLUME 95.1 fl (80.0-94.0); MEAN CORPUSCULAR HGB 30.6 pg (27.0-31.0); MEAN CORPUSCULAR HGB CONC 32.2 g/dl (33.0-37.0); MEAN PLATELET VOLUME 11.1 fl (9.6-12.3); MONO % 8.4 % (3.0-9.0); NEUT # 9.7 10*3/uL (2.3-7.9); NEUT % 85.3 % (47.0-73.0); PHOSPHOROUS 1.9 mg/dL (2.5-4.9); PLATELET COUNT AUTOMATED 228 10*3/uL (130-400); POTASSIUM 4.1 mmol/L (3.5-5.1); RED BLOOD COUNT 2.84 10*6/uL (4.50-5.90); RED CELL DISTRI WIDTH 13.7 % (0-14.5); SGOT/AST 29 IU/L (3-35); SGPT/ALT 24 U/L (12-78); SODIUM 142 mmol/L (136-145); TOTAL PROTEIN 5.8 gm/dL (6.4-8.2); WHITE BLOOD COUNT 11.4 10*3/uL (4.8-10.8)
[2017-09-08 06:10] LABS: FREE T4 1.18 ng/dl (0.76-1.46)
[2017-09-08 06:11] LABS: PREALBUMIN 15 mg/dl (20-40)
[2017-09-08 07:54] LABS: ABG BASE EXCESS 6.3 mmol/L (-2.0-2.0); ABG HCO3 30.5 mmol/l (22-26); ABG O2 SATURATION 98.9 % (95-97); ARTERIAL BLOOD GAS PH 7.455 (7.35-7.45)
--- NOTE | 2017-09-08 08:30 | NUR ---
Patient is intubated at this time. Discharge plan undecided.
--- NOTE | 2017-09-08 08:30 | NUR ---
PT AWAKE AND AGITATED. PT TRYING TO PULL AT ENDOTUBE AND NEWSOME. TRIED TO ORIENT PT TO TIME, PLACE AND VENTILATOR. PT DID NOD YES WHEN I ASKED HIM IF HIS LEFT LEG WAS HURTING. PT'S VSS. MAP 83. IV DOPAMINE CONTINUES AT 2.5 MCG. WHEN CONT. TO MONITOR FOR POSSIBLE TITRATION. RESP. RATE OF 12 AT THIS TIME. LUNG ALANIZ DIM. BILAT. SUCTIONED PT THROUGH ENDOTUBE FOR SMALL AMOUNT OF CLEAR SECRETIONS. OGT PLACEMENT VERIFIED WITH AN AIR BOLUS. 5CC REIDUAL NOTED. INCREASED TUBE FEEDING TO 50CC/HR. ABD. SOFT WITH ACTIVE BOWEL SOUNDS. NEWSOME PATENT FOR STRAW COLORED URINE. LEFT LOWER LEG REDDENED, SWOLLEN AND WARM TO TOUCH. [place] NOTED TO RIGHT LOWER LEG. OLD DRAINAGE NOTED TO LEFT ARM SKIN TEAR DRESSING. BED PLACED IN ROTATION MODE TO TURN PT Q1 HOUR.
--- NOTE | 2017-09-08 09:30 | NUR ---
PT RESTING. EARLIER VERSED AND MORPHINE EFFECTIVE.
--- NOTE | 2017-09-08 10:00 | NUR ---
10 AM LISINIPRIL AND NORVASC HELD. DR COLE NOTIFIED.
--- NOTE | 2017-09-08 10:08 | NUR ---
DR SCHREIBER CALLED IN REGARDING PT. ORDERS RECEIVED TO STOP SEDATION AND WHEN PT IS AWAKE THEN SWITCH VENT SETTINGS TO CPAP 5/10. IV DIPRIVAN PLACED ON HOLD. RESP. THERAPIST NOTIFIED.
--- NOTE | 2017-09-08 10:20 | NUR ---
PT AWAKE,ALERT AND ABLE TO FOLLOW SIMPLE COMMANDS. RESP. RATE 16. HR 84. EDUCATED PT ON CPAP TRIALS AND PT NODDED UNDERSTANDING. RESP. THERAPY CHANGED VENT SETTINGS TO CPAP 5/10 FIO2 CONTIUES AT 30%. WILL CONTIUE TO MONITOR PT.
--- NOTE | 2017-09-08 10:30 | NUR ---
PT'S POX 84%. INFORMED RESP. THERAPY TO INCREAS PT'S FIO2. RESP THERAPY INCREASED FIO2 TO 40%.
--- NOTE | 2017-09-08 10:57 | NUR ---
PT'S HR 125, RESP RATE 35, POX 93%. PT'S FACE IS FLUSHED AND HIS RESP ARE LABORED. RESP. THERAPY PLACED PT BACK TO PREVIOUS VENT SETTINGS AND IV SEDATION RESUMED AT PREVIOUS SETTINGS.
--- NOTE | 2017-09-08 11:25 | NUR ---
FIO2 DECREASED TO 35% FOR POX 97%. PT RESTING. NO ACUTE DISTRESS NOTED AT THIS TIME.
--- NOTE | 2017-09-08 12:12 | NUR ---
VISITOR IN TO SEE PT. UPDATED HER ON PT'S CONDITION AND PLAN OF CARE.
--- NOTE | 2017-09-08 12:48 | NUR ---
UPDATED DR SCHREIBER ON PT NOT TOLERATING CPAP TRIAL. NEW ORDERS RECEIVED.
--- NOTE | 2017-09-08 14:12 | NUR ---
DR ONEIL SPOKE WITH PT'S BROTHER ON THE PHONE AND PT'S GIRLFRIEND, JOHANNA WHO IS HERE R/T PICC LINE INSERTION. BOTH AGREED FOR PICC LINE INSERTION. BELKIS, PICC NURSE IS HERE TO PLACE PICC LINE.
--- NOTE | 2017-09-08 14:42 | NUR ---
LEFT ARM PICC INSERTED PER HOSP. POLICY. STAT CXR ORDERED TO CONFIRM PLACMENT.
--- NOTE | 2017-09-08 15:44 | NUR ---
DR MITCHELL NOTIFIED THAT PICC LINE IS IN PLACE PER RADILOGIST. DR MITCHELL TO PUT IN ORDER THAT WE CAN USE PICC LINE.
--- NOTE | 2017-09-08 18:54 | NUR ---
MEDICATED PT PER PRN ORDER WITH MORPHIINE FOR PT C/O LEFT LOWER LEG PAIN. PT UNABLE TO RATE ON PAIN SCALE R/T INTUBATION.
--- NOTE | 2017-09-08 19:20 | NUR ---
RELIEF OF PAIN WITH EARLIER MORPHINE.
--- NOTE | 2017-09-08 20:46 | NUR ---
MORPHINE GIVEN AT 0 FOR LEG PAIN AND VERSED GIVEN AT 2019 FOR AGITATION WAS EFFECTIVE....PT APPEARS COMFORTABLE/BODY RELAXED.
[2017-09-09] VITALS (24 sets, daily range): BP systolic 86–137; BP diastolic 48–75
--- NOTE | 2017-09-09 00:28 | NUR ---
COMPLETE BATH AND BED LINEN CHANGE DONE. VSS. VERSED AND MS GIVEN AT 2355 WAS EFFECTIVE FOR AGITATION AND LT LEG PAIN.
[2017-09-09 05:11] LABS: ABG BASE EXCESS 4.4 mmol/L (-2.0-2.0); ABG HCO3 29.4 mmol/l (22-26); ABG O2 SATURATION 95.8 % (95-97); ARTERIAL BLOOD GAS PCO2 47.9 mmHg (35-45); ARTERIAL BLOOD GAS PH 7.402 (7.35-7.45); ARTERIAL BLOOD GAS PO2 74.3 mmHg (80-90)
--- NOTE | 2017-09-09 05:15 | NUR ---
MORPHINE FOR PAIN AND VERSED FOR AGITATION GIVEN AT 0500 EFFECTIVE...PT BODY RELAXED.
[2017-09-09 06:09] LABS: HEMATOCRIT 25.9 % (42.0-52.0); HEMOGLOBIN 8.4 g/dl (14.0-18.0); MEAN CELL VOLUME 95.6 fl (80.0-94.0); MEAN CORPUSCULAR HGB CONC 32.4 g/dl (33.0-37.0); MEAN PLATELET VOLUME 11.3 fl (9.6-12.3); PLATELET COUNT AUTOMATED 233 10*3/uL (130-400); RED BLOOD COUNT 2.71 10*6/uL (4.50-5.90); RED CELL DISTRI WIDTH 13.9 % (0-14.5)
[2017-09-09 06:31] LABS: ALBUMIN 2.3 gm/dl (3.1-4.5); BUN 32 mg/dl (7-24); CHLORIDE 108 mmol/L (98-107); PHOSPHOROUS 2.8 mg/dL (2.5-4.9); POTASSIUM 4.2 mmol/L (3.5-5.1); SGOT/AST 39 IU/L (3-35); SGPT/ALT 24 U/L (12-78); SODIUM 144 mmol/L (136-145)
[2017-09-09 06:33] LABS: ALKALINE PHOSPHATASE 66 U/L (45-117); TOTAL PROTEIN 5.2 gm/dL (6.4-8.2)
--- NOTE | 2017-09-09 06:55 | NUR ---
IV SEDATION PLACED ON HOLD FOR CPAP TRIALS WHEN PT IS AWAKE AND ALERT.
[2017-09-09 07:05] LABS: PLATELET SUFFICIENCY NORMAL (NORMAL); POLYCHROMASIA SLIGHT; TOTAL CELLS COUNTED 100 #CELLS
--- NOTE | 2017-09-09 07:17 | NUR ---
PT IS AWAKE AND ALERT. PT PLACED TO CPAP 5/10 BY RESP. THERAPY. FIO2 INCREASED TO 40%. HR 87, BP 114/61, RESP 17, POX 99% ON 40%. INSTRUCTED PT THAT CPAP TRIALS AND EDUCATED PT AGAIN ON HOW THEY WORK. PT AGITATED AND POUNDING ON BEDRAILS. TRIED TO CALM PT BUT PT REMAINS AGITATED.
--- NOTE | 2017-09-09 07:25 | NUR ---
PT AGITATED AND POUNDING ON RAILS. HR 114, RESP RATE 29, POX 96%. SPOKE WITH PT ABOUT TRYING TO STAY CALM DURING CPAP TRIALS. PT REMAINS AGITATED.
--- NOTE | 2017-09-09 07:59 | NUR ---
PT POUNDING ON RAILS AND TRYING TO SIT STRAIGHT UP IN BED. TRIED TO REPOSITION PT AND PT REFUSED. SUCTIONED PT FOR LARGE AMOUNT OF ORAL SECRETIONS. PT REMAINS AGITATED.
--- NOTE | 2017-09-09 08:10 | NUR ---
PT HR 123, RESP RATE 30. POX 88%. FIO2 INCREASED TO 50%. ENCOURAGED PT TO TRY AND TAKE SLOW DEEP BREATHS.
--- NOTE | 2017-09-09 08:22 | NUR ---
HR 126, RESP RATE 38, POX 93% ON 50% FIO2. PT'S RESP. LABORED, FACE IS FLUSHED, PT NOT RESPONDING WELL HE HAD PREVIOUSLY. RESP. THERAPY PLACED PT BACK TO PREVIOUS VENT SETTINGS. IV DIPRIVAN RESUMED AT PREVIOUS SETTING. WILL CONTINUE TO MONITOR PT.
--- NOTE | 2017-09-09 09:00 | NUR ---
Patient is intubated at this time. Discharge plan undecided.
--- NOTE | 2017-09-09 09:27 | NUR ---
DR SCHREIBER IN TO SEE PT. UPDATED HIM ON LAB RESULTS AND PT FAILING CPAP TRIALS.
--- NOTE | 2017-09-09 10:08 | NUR ---
PT RESTING. NO DISTRESS NOTED AT THIS TIME.
--- NOTE | 2017-09-09 10:42 | NUR ---
PT AGITATED. MEDICATED PT PER PRN ORDER WITH HALDOL.
--- NOTE | 2017-09-09 10:57 | NUR ---
PT C/O LEFT LOWER LEG PAIN. MEDICATED PT PER PRN ORDER WITH MORPHINE. PT INTUBATED AND UNABLE TO RATE PAIN ON PAIN SCALE AT THIS TIME.
--- NOTE | 2017-09-09 11:15 | NUR ---
PT RESTING. EARLIER HALDOL AND MORPHINE EFFECTIVE.
--- NOTE | 2017-09-09 11:37 | NUR ---
DR GALINDO IN TO SEE PT. UPDATED HIM ON PT'S CONDITION AND PLAN OF CARE. DR GALINDO IS SIGNING OFF OF CASE.
--- NOTE | 2017-09-09 12:31 | NUR ---
PT VERY AGITATED. IV HALDOL GIVEN PER PRN ORDER.
--- NOTE | 2017-09-09 12:31 | NUR ---
PT AGITATED AGAIN. IV HALSOL GIVEN PER PRN ORDER.
--- NOTE | 2017-09-09 13:00 | NUR ---
PT RESTING. EARLIER HALDOL SEEMS EFFECTIVE.
--- NOTE | 2017-09-09 13:40 | NUR ---
PRN HALDOL GIVEN TO PT FOR HIS AGITATION.
--- NOTE | 2017-09-09 14:32 | NUR ---
EARLIER HALDOL NOT EFFECTIVE. MEDICATED PT AGAIN WITH IV HALDOL FOR HIS CONTINUED AGIATION. PT'S GIRLFRIEND AT BEDSIDE. I GAVE HER PT'S RING THAT I HAD TAKEN OFF OF HIS FINGER THE DAY BEFORE DUE TO EDEMA OF FINGERS.
--- NOTE | 2017-09-09 14:40 | NUR ---
SARAH, RESPDexter THERAPIST ADVANCED PT'S ENDOTUBE 3CM PER ORDER OF DR SCHREIBER.
--- NOTE | 2017-09-09 15:34 | NUR ---
DR CANDIE MONSIVAISON PT'S CONTINUED AGITATION. MEDICATED PT PER PRN ORDER WITH HALDOL FOR PT'S AGITATION. EARLIER HALDOL INEFFECTIVE.
--- NOTE | 2017-09-09 16:05 | NUR ---
PT C/O PAIN TO LEFT LOWER LEG. MEDICATED PT PER PRN ORDER WITH IV MORPHINE. PT REMAINS AGITATED EARLIER HALDOL INEFFECTIVE.
--- NOTE | 2017-09-09 16:30 | NUR ---
PT STATES RELIEF OF LEG PAIN WITH EARLIER MORPHINE.
--- NOTE | 2017-09-09 16:58 | NUR ---
MEDICATED PT PER PRN ORDER WITH HALDOL FOR PT'S CONTINUED AGITAITON.
--- NOTE | 2017-09-09 17:58 | NUR ---
MEDICATED PT PER PRN ORDER WITH HALDOL FOR PT'S CONTIUED AGITATION.
--- NOTE | 2017-09-09 18:21 | NUR ---
PT REMAINS RESTLESS BUT NOT AGITATED. HALDOL SOMEWHAT EFFECTIVE AT PRESENT TIME.
--- NOTE | 2017-09-09 19:50 | NUR ---
HALDOL GIVEN FOR AGITATION.
--- NOTE | 2017-09-09 20:31 | NUR ---
OG TUBE FEED RESIDUAL 360CC. TUBE FEED SHUT OFF AT THIS TIME.
--- NOTE | 2017-09-09 20:50 | NUR ---
HALDOL EFFECTIVE. PATIENT ASLEEP.
--- NOTE | 2017-09-09 21:19 | NUR ---
24 HR chart check completed.
--- NOTE | 2017-09-09 21:31 | NUR ---
HALDOL GIVEN FOR AGITATION.
--- NOTE | 2017-09-09 22:30 | NUR ---
PATIENT ASLEEP. HALDOL EFFECTIVE.
--- NOTE | 2017-09-09 22:39 | NUR ---
PATIENT PULLING AT RESTRAINTS AND HITTING SIDE RAILS. HALDOL GIVEN.
--- NOTE | 2017-09-09 23:30 | NUR ---
PATIENT ASLEEP. HALDOL EFFECTIVE.
--- NOTE | 2017-09-09 23:42 | NUR ---
TUBE FEED RESTARTED AT 20ML/HR. WILL MONITOR FOR RESIDUAL. WILL INCREASE RATE TOLERATED.
--- NOTE | 2017-09-09 23:50 | NUR ---
PATIENT HITTING SIDE RAILS/ PULLING ON WRIST RESTRAINTS. HALDOL GIVEN.
[2017-09-10] VITALS (47 sets, daily range): BP systolic 66–129; BP diastolic 33–77
--- NOTE | 2017-09-10 00:29 | NUR ---
PATIENT ASLEEP. NO SIGNS OF AGITATION. HALDOL EFFECTIVE.
--- NOTE | 2017-09-10 01:47 | NUR ---
PATIENT PULLING AT RESTRAINTS. HALDOL GIVEN.
--- NOTE | 2017-09-10 02:04 | NUR ---
PATIENT ASLEEP. HALDOL EFFECTIVE. DIPROVAN DECREASED.
--- NOTE | 2017-09-10 04:01 | NUR ---
PATIENT PULLING RESTRAINTS. ATTEMPTED TO SWING AT ME DURING TURNING. HALDOL GIVEN AT THIS TIME.
[2017-09-10 04:26] LABS: HEMATOCRIT 30.3 % (42.0-52.0); HEMOGLOBIN 9.4 g/dl (14.0-18.0); MEAN CELL VOLUME 98.1 fl (80.0-94.0); MEAN CORPUSCULAR HGB 30.4 pg (27.0-31.0); MEAN PLATELET VOLUME 11.1 fl (9.6-12.3); NUCLEATED RED BLOOD CELL 0.1 % (0.0-0.0); PLATELET COUNT AUTOMATED 257 10*3/uL (130-400); RED BLOOD COUNT 3.09 10*6/uL (4.50-5.90); RED CELL DISTRI WIDTH 14.4 % (0-14.5); WHITE BLOOD COUNT 18.8 10*3/uL (4.8-10.8)
[2017-09-10 04:42] LABS: ALBUMIN 2.6 gm/dl (3.1-4.5); CREATININE 1.49 mg/dL (0.70-1.30); PHOSPHOROUS 3.9 mg/dL (2.5-4.9); TOTAL PROTEIN 5.8 gm/dL (6.4-8.2)
--- NOTE | 2017-09-10 04:49 | NUR ---
RESIDUAL 100ML. TUBE FEED PLACED BACK ON HOLD.
--- NOTE | 2017-09-10 04:51 | NUR ---
PATIENT ADEQUATELY SEDATED. HALDOL EFFECTIVE.
[2017-09-10 04:57] LABS: TOTAL CELLS COUNTED 100 #CELLS
[2017-09-10 05:00] LABS: PLATELET SUFFICIENCY NORMAL (NORMAL); POLYCHROMASIA SLIGHT
[2017-09-10 05:01] LABS: POTASSIUM 5.6 mmol/L (3.5-5.1)
[2017-09-10 05:32] LABS: ABG BASE EXCESS 4.6 mmol/L (-2.0-2.0); ABG HCO3 31.1 mmol/l (22-26); ABG O2 SATURATION 97.6 % (95-97); ARTERIAL BLOOD GAS PCO2 60.6 mmHg (35-45); ARTERIAL BLOOD GAS PH 7.329 (7.35-7.45)
--- NOTE | 2017-09-10 07:43 | NUR ---
MED REC NOT REVIEWED PATIENT INTUBATED & NOTHING IN MED CLAIM HISTORY.
--- NOTE | 2017-09-10 07:45 | NUR ---
Shift chart check completed.
--- NOTE | 2017-09-10 08:45 | NUR ---
Invoice Clerk in to see patient. He remains on a vent. Discharge plan undecided at this time.
--- NOTE | 2017-09-10 09:13 | NUR ---
DR ONEIL HERE AND MADE AWARE OF NO BOWEL MOVEMENT & THAT MOM WAS GOING TO BE GIVEN THEN CALLED BACK TO THE ROOM AND SHOWN THAT THE RESIDUAL FROM THE OGT IS REDDISH/BROWN & CONCERN FOR BLEED. ASPIRIN/LOVENOL/MOM HELD. PRN MORPHINE GIVEN FOR PATIENT C/O HEAD PAIN. DIPRIVAN HAS BEEN OFF FOR 20 MINUTES AND THE PATIENE'S O2 SATURATIONS HAVE HELD MID 90'S BUT HIS RESP HAVE INCREASED TO 30 AND DIPRIVAN RESTARTED. RATE IS NOW 20mcg. ivf HUNG PER ORDERS VIA LEFT ARM PICC LINE WITH ALL PORTS PATENT. HOB ELEVATED AND TUBE FEEDING IS OFF. GEN DEPENDENT EDEMA OF BILAT HANDS. LEFT LOWER LEG CELLULITIS MUCH IMPROVED FROM ADMISSION. DRESSING TO LEFT ARM SECURE & PATENT.
--- NOTE | 2017-09-10 09:30 | NUR ---
Dr Hinson here. No changes to Ventilator today. Awaiting Gastrocult results.
--- NOTE | 2017-09-10 10:08 | NUR ---
KUNiles done at bedside. Dr Velasquez called with gastrocult results being positive,.
--- NOTE | 2017-09-10 10:19 | NUR ---
HALDOL GIVEN FOR AGGITATION/ DIPRIVAN AT 10mcg. BLOOD PRESSURE RUNNING INTO THE 80'S SYSTOLIC
--- NOTE | 2017-09-10 11:10 | NUR ---
RETURNED FROM RADIOLOGY AFTER CT SCANS COMPLETED.
--- NOTE | 2017-09-10 11:39 | NUR ---
HALDOL GIVEN FOR CONTINUED RESTLESSNESS / DIPRIVAN REMAINS AT 10mcg. BLOOD PRESSURE DROPPING INTO THE 70'S
--- NOTE | 2017-09-10 13:40 | NUR ---
MEDICATED AGAIN FOR RESTLESSNESS WITH HALDOL. BLOOD PRESSURE REMAINS SYSTOLIC 70-90.
--- NOTE | 2017-09-10 14:28 | NUR ---
MAINTAIN NPO STATUS FOR TODAY - CONTINUE TO HOLD TUBE FEEDINGS. MAINTAIN OGT TO LIS.
--- NOTE | 2017-09-10 15:07 | NUR ---
PATIENT REMAINS EXTREMELY RESTLESS. HALDOL AGAIN GIVEN. OGT HOOKED TO LOW CONTINUOUS SUCTION FOR 2 MINUTES AND 200cc RED/BROWN DRAINAGE OBTAINED. FLUID BOLUS INFUSING. DR FERRER AWARE OF DR CANDIE PEREZ.
--- NOTE | 2017-09-10 15:35 | NUR ---
PATIENT REMAINS RESTLESS BUT SLIGHT IMPROVEMENT.
--- NOTE | 2017-09-10 15:59 | NUR ---
HALDOL GIVEN FOR AGGITATION - ATTEMPTED TO GRAB RN. REASSURANCE MET WITH RESISTANCE. DIPRIVAN INCREASED TO 20mcg/10ml VIA PICC LINE - FLUID BOLUS CONTINUES
--- NOTE | 2017-09-10 17:00 | NUR ---
SPOKE WITH DR FERRER ABOUT NEEDING TO RESTART DOPAMINE FOR BLOOD PRESSURE THE PATIENT IS UNABLE TO RELAX AND IS BECOMING AGGRESSIVE AND TRYING TO GET TO THE LINES TO PULL. PULLING AT RESTRAINTS. DIPRIVAN INCREASED TO 30 MCG TO ATTEMPT TO CALM PATIENT & HOURLY HALDOL NOT EFFECTIVE AT THIS TIME. IF BLOOD PRESSURE DOES NOT TOLERATE THE LOWER DOSE VERSED THEN NOTIFY HER AND WE MAY START LEVOPHED.
--- NOTE | 2017-09-10 17:18 | NUR ---
DR SAEED CALLED AND INFORMED ABOUT BLOOD PRESSURE DROPPING AFTER INCREASING DIPRIVAN AND THAT WAS TAKEN JUST AFTER VERSED.
--- NOTE | 2017-09-10 17:38 | NUR ---
LEVOPHED HUNG PER ORDERS FOR HYPOTENTION.
--- NOTE | 2017-09-10 17:47 | NUR ---
LEVOPHED INCREASED TO 12mcg/90cc FOR HYPOTENTION
[2017-09-10 19:13] LABS: HEMATOCRIT 29.4 % (42.0-52.0); HEMOGLOBIN 9.1 g/dl (14.0-18.0)
--- NOTE | 2017-09-10 21:28 | NUR ---
PATIENT GIVEN HALDOL FOR AGITATION. PATIENT TRYING TO SIT UP WHILE INTUBATED.
--- NOTE | 2017-09-10 23:21 | NUR ---
PATIENT TURNING HEAD AND TRYING TO REAH FOR ET TUBE. PATIENT GIVEN HALDOL PER ORDER FOR AGITATION
[2017-09-11] VITALS (97 sets, daily range): BP systolic 88–137; BP diastolic 42–71
--- NOTE | 2017-09-11 00:19 | NUR ---
PATIENT STILL TRYING TO SIT UP PATIENT GIVEN PRN HALDOL.
[2017-09-11 04:48] LABS: ABG BASE EXCESS 4.6 mmol/L (-2.0-2.0); ABG HCO3 30.8 mmol/l (22-26); ABG O2 SATURATION 63.2 % (95-97); ARTERIAL BLOOD GAS PCO2 58.7 mmHg (35-45); ARTERIAL BLOOD GAS PH 7.338 (7.35-7.45)
[2017-09-11 05:02] LABS: ABG BASE EXCESS 4.1 mmol/L (-2.0-2.0); ABG HCO3 29.4 mmol/l (22-26); ABG O2 SATURATION 98.6 % (95-97); ARTERIAL BLOOD GAS PCO2 50.2 mmHg (35-45); ARTERIAL BLOOD GAS PH 7.383 (7.35-7.45)
[2017-09-11 06:04] LABS: HEMOGLOBIN 8.4 g/dl (14.0-18.0); MEAN CELL VOLUME 97.5 fl (80.0-94.0); MEAN CORPUSCULAR HGB 30.3 pg (27.0-31.0); MEAN CORPUSCULAR HGB CONC 31.1 g/dl (33.0-37.0); MEAN PLATELET VOLUME 11.5 fl (9.6-12.3); NUCLEATED RED BLOOD CELL 0.1 % (0.0-0.0); PLATELET COUNT AUTOMATED 262 10*3/uL (130-400); RED BLOOD COUNT 2.77 10*6/uL (4.50-5.90); RED CELL DISTRI WIDTH 14.4 % (0-14.5); WHITE BLOOD COUNT 20.6 10*3/uL (4.8-10.8)
[2017-09-11 06:19] LABS: ALBUMIN 2.2 gm/dl (3.1-4.5); CREATININE 1.65 mg/dL (0.70-1.30); PHOSPHOROUS 3.3 mg/dL (2.5-4.9); POTASSIUM 5.7 mmol/L (3.5-5.1)
[2017-09-11 06:22] LABS: TOTAL PROTEIN 5.1 gm/dL (6.4-8.2)
[2017-09-11 06:45] LABS: PLATELET SUFFICIENCY NORMAL (NORMAL); TOTAL CELLS COUNTED 100 #CELLS
--- NOTE | 2017-09-11 07:39 | NUR ---
Shift chart check completed.24 HR chart check completed.
--- NOTE | 2017-09-11 09:18 | NUR ---
ON ASSESSMENT PATIENT IS ADEQUATELY SEDATED, ON DIPRIVAN AT 40MCG/KG/MIN. LEVOPHED DRIP AT 13MCG/MIN.IV FLUID AT 100ML/HR. PT HAS GENERALIZED EDEMA. NEWSOME PATENT CHARLES URINE. OGT TO LIWS DRAINING COFFEE GROUND LIQUID. TURNED, SKIN EVALUATED. THERE IS A NEW CLOSED BLISTER ON HIS LEFT HEEL. WOUND CARE NURSE IS HERE, PHOTO TAKEN, AND DOCUMENTATION DONE. CONTACT ISOLATION MAINTAINED FOR +ASC SCREENING. SCD'S IN PLACE. SEE ALL APPROPRIATE INTERVENTIONS.
--- NOTE | 2017-09-11 09:44 | NUR ---
[facility] WAS CALLED TO RE-VISIT PATIENT THEY HAD SIGNED OFF ON 09/09.
--- NOTE | 2017-09-11 10:10 | NUR ---
[facility] NOTIFIED OF CONSULTATION.
--- NOTE | 2017-09-11 10:20 | NUR ---
HELENA MANNYOCASTA [id number] Please refer to the physician's history and physical for past medical history, comorbid conditions, and allergies. Diagnosis: CELLULITIS OF LEFT LOWER EXTREMITY COPD EXACERBATI Jesse Score: 12,HIGH RISK WOUND DESCRIPTIONS: Location of the wound: left heel Type of wound: stage 2 Thickness: Partial Size: 3cm x 3cm x <0.1cm Tunneling: none Undermining: none Sinus Tract: none Presence of Exudate: None Amount: None Color: Jean-Baptiste Odor: None Periwound Skin Appearance: Normal Wound edges: closed Pain (associated with wound): patient unable to tell if in pain. No grimacing noted when area assessed How does patient state this happened? patient unsure If wound is on legs/feet or hands, capillary refill time, pulses, color temp, sensation: Capillary refill <3seconds. Pulse present. Surface the patient is resting on: XPRT SKIN PREVENTION RECOMMENDATION: 1. Pressure redistribution support surface as appropriate 2. Elevate heels 3. Remove boots/TEDS every shift and reapply 4. Head of bed 30 degrees as tolerated 5. Assess nutrition and hydration 6. Manage moisture 7. Avoid the use of containment devices while in bed 8. Use absorptive products on surfaces limit layers of linens on bed 9. Turn and reposition every 1-2 hours in bed and every 1 hour in chair as tolerated 10. Weight shifts every 15 minutes while up in chair 11. Offloading with pillows or device to keep heels elevated off bed 12. Monitor skin at least every shift 13. Inspect under medical devices twice a day WOUND TREATMENT RECOMMENDATIONS: Left heel: Heel raiser pro boots and cover area with optifoam gentle for protection.
--- NOTE | 2017-09-11 10:20 | NUR ---
DR LEMUS NOTIFIED OF CONSULTATION.
--- NOTE | 2017-09-11 12:03 | NUR ---
DR LEMUS HAS BEEN TO VISIT. DR SCHREIBER HAS VISITED.
--- NOTE | 2017-09-11 12:30 | NUR ---
DR RUST CALLED IN, LABS/ORDERS REVIEWED. SHE REQUESTED DR LANDEROS CALL HER AND HE WAS INFORMED OF THIS.
--- NOTE | 2017-09-11 13:25 | NUR ---
DR MUNIZ WAS IN. PT IS CURRENTLY RESTING EASILY. HIS LIFE PARTNER AT THE BEDSIDE. DR LANDEROS AWARE SHE IS HERE TO COME AND SPEAK WITH HER.
--- NOTE | 2017-09-11 14:43 | NUR ---
DR LANDEROS HAS TALKED WITH PT'S LIFE PARTNER, RAFY. SHE HAS GIVEN US PERMISSION TO SHAVE THE PT. WE HAVE SHAVED HIM AND PLACED A STABILITUBE FOR ETT SECUREMENT.
--- NOTE | 2017-09-11 15:20 | NUR ---
COLOSTOMY BAG BURPED FOR AIR. EXPLANATIONS REINFORCED TO PT ABOUT "HOW DOES THAT HAPPEN?"
--- NOTE | 2017-09-11 18:28 | NUR ---
SINCE STARTING CARAFATE/GAVISCON REGIMEN THE SUCTION CANNISTER CHANGED SO THAT A CHANGE IN DRAINAGE CAN BE NOTED.
[2017-09-11 20:28] LABS: CREATININE 1.49 mg/dL (0.70-1.30); POTASSIUM 5.2 mmol/L (3.5-5.1)
--- NOTE | 2017-09-11 20:52 | NUR ---
DR CRAIG NOTIFIED OF BMP RESULTS. NO NEW ORDERS RECEIVED.
--- NOTE | 2017-09-11 22:28 | NUR ---
DR VERMA NOTIFIED OF BLOOD GLUCOSE IN BMP OF 348... ALSO THAT I WINDY THIS SAMPLE FROM PICC AND WASTED 20CC OF BLOOD. BLOODWORK ORDERED FOR AM. NO OTHER ORDERS AT THIS TIME.
[2017-09-12] VITALS (97 sets, daily range): BP systolic 80–129; BP diastolic 38–71
--- NOTE | 2017-09-12 00:17 | NUR ---
PT TOLERATING TITRATION OF LEVOPHED TO 9 MICS/MIN.
--- NOTE | 2017-09-12 01:51 | NUR ---
COMPLETE BATH AND BED LINEN CHANGE DONE. PT TOLERATED WELL.
--- NOTE | 2017-09-12 02:56 | NUR ---
BED LINENS CHANGED AND PT BATH DONE.
--- NOTE | 2017-09-12 04:08 | NUR ---
PT HR LOW 100'S, GRIMACING. MEDICATED WITH MORPHINE AT 0325, EFFECTIVE...HR 90'S AND BODY RELAXED.
--- NOTE | 2017-09-12 04:36 | NUR ---
OGT LIQUID COLOR IS GREEN/BILE COLORED AT THIS TIME.
[2017-09-12 04:42] LABS: HEMOGLOBIN 9.6 g/dl (14.0-18.0); MEAN CELL VOLUME 99.4 fl (80.0-94.0); MEAN CORPUSCULAR HGB 30.8 pg (27.0-31.0); MEAN PLATELET VOLUME 11.3 fl (9.6-12.3); NUCLEATED RED BLOOD CELL 0.2 % (0.0-0.0); PLATELET COUNT AUTOMATED 268 10*3/uL (130-400); RED BLOOD COUNT 3.12 10*6/uL (4.50-5.90); RED CELL DISTRI WIDTH 14.4 % (0-14.5); WHITE BLOOD COUNT 24.1 10*3/uL (4.8-10.8)
[2017-09-12 05:08] LABS: PLATELET SUFFICIENCY NORMAL (NORMAL); TOTAL CELLS COUNTED 100 #CELLS
[2017-09-12 05:11] LABS: ALBUMIN 2.3 gm/dl (3.1-4.5); CREATININE 1.45 mg/dL (0.70-1.30); PHOSPHOROUS 4.2 mg/dL (2.5-4.9); POTASSIUM 5.4 mmol/L (3.5-5.1); TOTAL PROTEIN 5.5 gm/dL (6.4-8.2)
[2017-09-12 05:49] LABS: ABG BASE EXCESS 2.6 mmol/L (-2.0-2.0); ABG HCO3 28.9 mmol/l (22-26); ABG O2 SATURATION 96.6 % (95-97); ARTERIAL BLOOD GAS PCO2 56.5 mmHg (35-45); ARTERIAL BLOOD GAS PH 7.327 (7.35-7.45); ARTERIAL BLOOD GAS PO2 89.9 mmHg (80-90)
--- NOTE | 2017-09-12 07:24 | NUR ---
Shift chart check completed.
--- NOTE | 2017-09-12 07:28 | NUR ---
DR LEMUS HERE - CASE/LAB REVIEWED. NO CHANGE TO CARE/ORDERS
--- NOTE | 2017-09-12 10:00 | NUR ---
ORAL CARE DONE. DRESSING TO SAMEER & LEFT HEEL & PICC LINE CHANGED. MONITOR LEFT PICC LINE SITE D/T MILD IRRITATION FROM DRESSING, NO OPEN AREAS BUT CONCERN FOR A BLISTER DEVELPOPING FROM ADHESIVE. LEFT ARM SEEPING SMALL AMOUNTS. IV TO RIGHT HAND REMOVED AFTER UNABLE TO FLUSH/NO BLOOD RETURN. DRESSING APPLIED. BILAT ARMS ARE ELEVATED TO ASSIST WITH EDEMA. DR LANDEROS ROUNDED AND EDEMA DISCUSSED. LEVOPHED REMAINS AT 12mcg. TPN & LIPOSYN STOPPED TO RUN ANTIBIOTIC UNABLE TO OBTAIN A PERIPOHERAL SITE D/T 3RD SPACING. HEEL RAISERS ON BUT NO STRAPS THEY ARE IRRITATING THE SKIN.
--- NOTE | 2017-09-12 11:00 | NUR ---
DR SCHREIBER WAS IN EARLIER & USED THE ULTRASOUND TO VIEW THE LUNGS. LESS FLUID (@ 100ML/SIDE) NO FURTHER TREATMENT AT THIS TIME, CONTINUE CURRENT TREATMENT
--- NOTE | 2017-09-12 12:44 | NUR ---
ISOLATION PROTECTION DISCUSSED WITH GIRLFRIEND AGAIN. SHE CHOOSE NOT TO WEAR IT BUT USED HAND GEL UPON ENTERING ROOM & SAYS WILL UPON EXITING.
--- NOTE | 2017-09-12 13:00 | NUR ---
DR RUST WAS IN AND DISCUSSED THE CASE, EXAMINED THE PATIENT. NO NEW ORDERS AT THIS TIME.
--- NOTE | 2017-09-12 15:27 | NUR ---
DR SCHREIBER CALLED IN AND REQUESTED THE ETT BE ADVANCED 4cm. ETT NOW 26 AT THE LIP. OGT NOW CLAMPED AFTER MEDICATION GIVEN BUT HAD JUST STARTED WITHIN THE LAST 30 MINUTES WITH BRIGHT RED COMING FROM OGT WHILE ON LIS. NEWSOME SECURE & PATENT WITH CLOUDY STRAW URINE.
--- NOTE | 2017-09-12 18:00 | NUR ---
DRESSING TO LEFT HEEL CHANGED AFTER COMING LOOSE. SCD OFF AFTER LEAVING FIELDS IN THE PATIENT'S SKIN. LEFT LOWER LEG REMAINS MORE SWOLLEN THAN THE RIGHT. BILAT UPPER EXTREMITIES EDEMATOUS ALONG WITH SCROTAL EDEMA. LEFT PICC LINE SECURE & PATENT TO BOTH PORTS. OGT TO LIS
--- NOTE | 2017-09-12 20:03 | NUR ---
ON ASSESSMENT PATIENT REMAINS ORALLY INTUBATED WITH SIZE #8 ETT, 26 CM AT THE LIP. OGT IN PLACE, CLAMPED. ABDOMEN IS SOFTLY DISTENDED WITH VERY LITTLE PERISTALSIS AUSUCULTATED. PICC LINE INTACT LEFT ARM, TPN/LIPIDS IN ONE PORT AND DIPRIVAN/LEVOPHED IN THE OTHER PORT. DOUBLE STRENGTH LEVOPHED IS AT 12MCG/MIN OR 45ML/HR. DIPRIVAN ADJUSTED FOR HIS WEIGHT TODAY AND IS CURRENTLY INFUSING AT 30MCG/KG/MIN. ANASARCA CONTINUES. HEEL PROTECTORS ARE ON, UPPER EXTREMITIES ELEVATED ON PILLOWS. WRIST RESTRAINTS IN PLACE WITH A FINGER ABLE TO BE SLIPPED UNDER ALL ARMBANDS AND THE RESTRAINTS. SEE ALL APPROPRIATE INTERVENTIONS.
--- NOTE | 2017-09-12 20:03 | NUR ---
Shift chart check completed.24 HR chart check completed.
[2017-09-13] VITALS (95 sets, daily range): BP systolic 69–129; BP diastolic 32–638
--- NOTE | 2017-09-13 02:40 | NUR ---
LEVOPHED HAS BEEN TITRATED UP TO 15MCG/MIN FOR BP <65MEAN. OGT REMAINS INTERMITTENTLY MORLEY COLORED.
[2017-09-13 05:33] LABS: ALBUMIN 2.2 gm/dl (3.1-4.5); CREATININE 1.53 mg/dL (0.70-1.30); PHOSPHOROUS 3.1 mg/dL (2.5-4.9); TOTAL PROTEIN 5.1 gm/dL (6.4-8.2)
[2017-09-13 05:40] LABS: POTASSIUM 4.4 mmol/L (3.5-5.1)
[2017-09-13 06:40] LABS: HEMATOCRIT 29.4 % (42.0-52.0); HEMOGLOBIN 8.8 g/dl (14.0-18.0); MEAN CELL VOLUME 100.3 fl (80.0-94.0); MEAN CORPUSCULAR HGB CONC 29.9 g/dl (33.0-37.0); MEAN PLATELET VOLUME 11.3 fl (9.6-12.3); NUCLEATED RED BLOOD CELL 0.1 10*3/uL (0.0-0.0); NUCLEATED RED BLOOD CELL 0.3 % (0.0-0.0); PLATELET COUNT AUTOMATED 274 10*3/uL (130-400); RED BLOOD COUNT 2.93 10*6/uL (4.50-5.90); RED CELL DISTRI WIDTH 14.4 % (0-14.5); WHITE BLOOD COUNT 26.2 10*3/uL (4.8-10.8)
--- NOTE | 2017-09-13 06:45 | NUR ---
DIPRIVAN DRIP OFF TO CHECK LOC AND BP. CXR DONE.
[2017-09-13 07:13] LABS: PLATELET SUFFICIENCY NORMAL (NORMAL); POLYCHROMASIA SLIGHT; TOTAL CELLS COUNTED 100 #CELLS; TOXIC GRANULATION MODERATE
--- NOTE | 2017-09-13 07:57 | NUR ---
Shift chart check completed.
--- NOTE | 2017-09-13 08:00 | NUR ---
ASSESSMENT DONE AT BEDSIDE. ETT SECURE W/ 26 AT LIP. DIPRIVAN REMAINS OFF TO EVALUATE NEUROLOGICAL STATUS. HR TACHY 115-MID 120'S & RR 18. DANY REAMINS WITH MAP < 65 SO LEVOPHED INCREASED TO 17mcg/min. ALL IV'S INFUSING VIA LEFT PICC LINE. OGGT SECURE & PLACEMENT CONFIRMED WITH AN AIR BOLUS THEN MEDICATION GIVEN. BILAT UPPER ARM EDEMA W/ SOME AREAS SEEPING. BILAT LOWER LEG EDEMA FEET TO GROIN INCLUDING SCROTUM WITH LEFT > RIGHT. DRESSING TO LEFT HEEL & SAMEER SECURE, NOT VISUALIZED. TEMP ELEVATED. VERY HYPOACTIVE BS X4.
--- NOTE | 2017-09-13 08:30 | NUR ---
[employer] in to see patient. He remains on a vent. Discharge plan undecided at this time.
--- NOTE | 2017-09-13 09:00 | NUR ---
DR SCHREIBER HERE AND EXAMINED PATIENT
--- NOTE | 2017-09-13 09:30 | NUR ---
OGT PLACED BACK TO LIS AND MORLEY LIQUID IN HOSE. LEVOPHED INCREASED TO 18mcg/min VIA PICC LINE. RR INCREASING W/ PANTING RESP RATE TO THE MID 20'S
--- NOTE | 2017-09-13 09:39 | NUR ---
DIPRIVAN RESTARTED PANTING AND INCREASES RESP CONTINUED
--- NOTE | 2017-09-13 09:48 | NUR ---
DIPRIVAN INCREASED TO 40mcg FOR RR 40'S PANTING
--- NOTE | 2017-09-13 11:00 | NUR ---
SPOKE WITH DR GALINDO AT LENGTH ABOUT CASE AND HYPOTENTION. ALL MEDS/LABS/IVF TOTAL INTAKE/OUTPUTS. HE IS UNABLE TO DIURESIS D/T HYPOTENTION BUT HE IS NOT GOING TO ADD ANOTHER PRESSOR THE IC DESIGNER CUSTOM NEEDS TO DO THIS IT IS OUTSIDE HIS SCOPE. NO NEW ORDERS FOR RENAL ISSUES AT THIS POINT. DISCUSSED STOPPING DIPRIVAN AND USING PRN VERSED FOR SEDATION TO SEE IF THAT MAKES A DIFFERENCE.
--- NOTE | 2017-09-13 11:19 | NUR ---
DR COLE CAME IN AND CASE DISCUSSED ALONG WITH DR GALINDO CONCERNS. DIPRIVAN WAS STOPPED AND AFTER DR COLE SEEING THE PATIENT ORDER FOR NEOSYNEPHRINE WAS RECEIVED.
--- NOTE | 2017-09-13 11:48 | NUR ---
PRN VERSED & HALDOL WERE GIVEN. DIPRIVAN REMAINS OFF. LEVOPHED WAS INCREASED TO 20 MCG/MIN FOR HYPOTENTION WITH SYSTOLICS IN THE 70'S. LETHA-SYNEPHRINE STARTED AT 100 MCG/MIN.
--- NOTE | 2017-09-13 12:30 | NUR ---
DR QUIÑONEZ MADE AWARE OF DOSES OF LEVOPHED & NEOSYNEPHRINE AND BLOOD PRESSURES.
--- NOTE | 2017-09-13 13:13 | NUR ---
MEDICATED WITH VERSED FOR TACHYPNEA. PER THE GIRL FRIEND THE PATIENT TOLD HIS FRIEND THAT HE WOULD BE GONE () BEFORE SEPTEMBER.
--- NOTE | 2017-09-13 13:35 | NUR ---
Nursing screen received and chart review completed. Patient on ventilator in ICCU. Consider Occupational Therapy evaluation once patient is medically stable. Thank you. Tracy Whitten OTR/l
--- NOTE | 2017-09-13 13:58 | NUR ---
SPEECH PATHOLOGY Screening completed. Patient is currently sedated, with ETT and on ventilator. Due to severity of status, he is not not appropriate at this time however this dept. will remain available should future needs arise. LEONELA GLASER [facility]
--- NOTE | 2017-09-13 14:41 | NUR ---
WOUND CARE NURSE ADELINE WAS IN AND REMEASURED ALL THE WOUNDS. OPTIFOAM AND SKIN PREP TO BLISTERS ON THE RT FLANK AREA. VERSED GIVEN. GIRL FRIEND BACK TO BEDSIDE. KNEES MOTTLED R>L.
--- NOTE | 2017-09-13 15:59 | NUR ---
HELENA MANNYOCASTA Irby [id number] Please refer to the physician's history and physical for past medical history, comorbid conditions, and allergies. Diagnosis: CELLULITIS OF LEFT LOWER EXTREMITY COPD EXACERBATI Jesse Score: 12,HIGH RISK WOUND DESCRIPTIONS: Location of the wound: left heel Type of wound: stage 2 Thickness: Partial Size: 2.0cm x 4.0cm x <0.1cm Tunneling: none Undermining: none Sinus Tract: none Presence of Exudate: Amount: None Color: Jean-Baptiste Odor: None Periwound Skin Appearance: Normal Wound edges: closed Pain (associated with wound): none at time of assessment How does patient state this happened? pt is unable to answer at this time due to being on a vent. Location of the wound: left ac Type of wound: skin tear Thickness: Partial Size: 2.0cm x 2.0cm x 0.1cm Tunneling: none Undermining: none Sinus Tract: none Presence of Exudate: Sanguineous Amount: Light Color: Red Odor: None Periwound Skin Appearance: Normal Wound edges: approximated Pain (associated with wound): none at time of assessment How does patient state this happened? pt unable to stated due to being put on a vent. Location of the wound: right back top Type of wound: intact serum filled blisters Thickness: Partial Size: 0.6cm x 1.7cm x <0.1cm Tunneling: none Undermining: none Sinus Tract: none Presence of Exudate: none Amount: None Color: Red Odor: None Periwound Skin Appearance: Normal Wound edges: closed Pain (associated with wound): none at time of assessment How does patient state this happened? pt unable to stated due to being put on a vent. Location of the wound: right back middle Type of wound: intact serum filled blisters Thickness: Partial Size: 4.5cm x 1.5cm x <0.1cm Tunneling: none Undermining: none Sinus Tract: none Presence of Exudate: none Amount: None Color: Red Odor: None Periwound Skin Appearance: Normal Wound edges: closed Pain (associated with wound): none at time of assessment How does patient state this happened? pt unable to stated due to being on a vent. Location of the wound: right back bottom Type of wound: ruptured serum filled blisters Thickness: Partial Size: 1.0cm x 4.5cm x <0.1cm Tunneling: none Undermining: none Sinus Tract: none Presence of Exudate: none Amount: None Color: Red Odor: None Periwound Skin Appearance: Normal Wound edges: closed Pain (associated with wound): none at time of assessment How does patient state this happened? pt unable to stated due to being put on a vent. Location of the wound: right back bottom Type of wound: intact serum filled blisters Thickness: Partial Size: 0.3cm x 1.2cm x <0.1cm Tunneling: none Undermining: none Sinus Tract: none Presence of Exudate: none Amount: None Color: Red Odor: None Periwound Skin Appearance: Normal Wound edges: closed Pain (associated with wound): none at time of assessment How does patient state this happened? pt unable to stated due to being put on a vent. Surface the patient is resting on: XPRT SKIN PREVENTION RECOMMENDATION: 1. Pressure redistribution support surface as appropriate 2. Elevate heels 3. Remove boots/TEDS every shift and reapply 4. Head of bed 30 degrees as tolerated 5. Assess nutrition and hydration 6. Manage moisture 7. Avoid the use of containment devices while in bed 8. Use absorptive products on surfaces limit layers of linens on bed 9. Turn and reposition every 1-2 hours in bed and every 1 hour in chair as tolerated 10. Weight shifts every 15 minutes while up in chair 11. Offloading with pillows or device to keep heels elevated off bed 12. Monitor skin at least every shift 13. Inspect under medical devices twice a day WOUND TREATMENT RECOMMENDATIONS: Apply sureprep to blistered areas and cover with optifoam sacral gentle.
--- NOTE | 2017-09-13 17:06 | NUR ---
SPOKE WITH THE HOSPICE NURSE AND THEY WERE LOOKINGG FOR INFORMATION ABOUT THE PATIENT WANTING TO KNOW IF THE FAMILY WAS WILLING TO DO A TERMINAL WEAN. SPOKE WITH MARKY VILLALPANDO ABOUT THE ETHICS CONSULT AND THEN CALLED THE BROTHER ILIANA. ILIANA SAID THAT THEY HAD NEVER HAD ANY DISCUSSIONS EVEN IN THE PAST ABOUT ANYTHING LIKE THIS. HE SAID BUT THIS IS NO WAY OF LIVING AND THAT HE DIDN'T THINK THAT IS BROTHER WOULD WANT THIS. THERE IS A BIOLOGICAL DAUGHTER THAT HS NOTHING TO DO WITH HIM FOR OVER 3 YEARS & SHE USED TO CONTACT THE BROTHER ILIANA BUT NOW WILL NOT SPEAK WITH HIM EITHER. RN THEN CALLED MARKY VILLALPANDO BACK AND SHE WILL MEET WITH US TOMORROW TO ASSIST WITH THE PROCESS. SPOKE AGAIN WITH THE BROTHER ILIANA & HE & TAMELA THE LIVE IN GIRL FRIEND WILL BE HERE AT 0900 TO MEET WITH THE HOSPICE NURSE AND THEN THE PROCESS OF TERMINAL WEAN CAN PROCEED. CALLED TITO FROM [facility] AND SHE WILL HAVE A NURSE HERE TOMORROW BEFORE 9AM.
--- NOTE | 2017-09-13 18:11 | NUR ---
ALBUMIN INFUSING. TPN & LIPIDS STOPPED WHILE ALBUMIN INFUSING AND NOW BP DROPPED.
--- NOTE | 2017-09-13 18:15 | NUR ---
LEVOPHED INCREASED TO 30mcg/min & LEHTA INCREASED TO 200mcg/min FOR HYPOTENTION AFTER TPN & LIPOSYN STOPPED FOR ALBUMIN INFUSION
--- NOTE | 2017-09-13 19:36 | NUR ---
Shift chart check completed.24 HR chart check completed.
--- NOTE | 2017-09-13 20:28 | NUR ---
ON ASSESSMENT PATIENT RESTING QUIETLY, NO SEDATION. GRIMACES AND EYEBROWS RAISE TO SUCTIONING BUT DOESN'T AROUSE ENOUGH TO MAKE EYE CONTACT OR FOLLOW ANY COMMANDS. REMAINS ORALLY INTUBATED 26 AT THE LIP. NEOSYNEPHRINE TITRATED TO 125MCG/MIN AND LEVOPHED TO 15MCG/MIN. ANASARCA CONTINUES. NEWSOME PATENT CHARLES URINE. HEEL RISERS/SCD'S IN PLACE. SEE ALL APPROPRIATE INTERVENTIONS.
[2017-09-14] VITALS (47 sets, daily range): BP systolic 80–142; BP diastolic 40–80
--- NOTE | 2017-09-14 00:34 | NUR ---
TYLENOL VIA OGT FOR RECTAL TEMP 101.4.
[2017-09-14 06:14] LABS: HEMATOCRIT 26.3 % (42.0-52.0); HEMOGLOBIN 8.1 g/dl (14.0-18.0); MEAN CELL VOLUME 100.4 fl (80.0-94.0); MEAN CORPUSCULAR HGB 30.9 pg (27.0-31.0); MEAN CORPUSCULAR HGB CONC 30.8 g/dl (33.0-37.0); MEAN PLATELET VOLUME 11.1 fl (9.6-12.3); NUCLEATED RED BLOOD CELL 0.1 % (0.0-0.0); PLATELET COUNT AUTOMATED 236 10*3/uL (130-400); RED BLOOD COUNT 2.62 10*6/uL (4.50-5.90); RED CELL DISTRI WIDTH 14.4 % (0-14.5); WHITE BLOOD COUNT 27.5 10*3/uL (4.8-10.8)
[2017-09-14 06:18] LABS: ALBUMIN 2.2 gm/dl (3.1-4.5); ALKALINE PHOSPHATASE 62 U/L (45-117); BUN 57 mg/dl (7-24); CHLORIDE 102 mmol/L (98-107); CREATININE 1.27 mg/dL (0.70-1.30); PHOSPHOROUS 2.7 mg/dL (2.5-4.9); POTASSIUM 4.8 mmol/L (3.5-5.1); SGOT/AST 45 IU/L (3-35); SGPT/ALT 54 U/L (12-78); SODIUM 138 mmol/L (136-145); TOTAL PROTEIN 5.2 gm/dL (6.4-8.2)
[2017-09-14 07:01] LABS: POLYCHROMASIA SLIGHT; TOTAL CELLS COUNTED 100 #CELLS
[2017-09-14 07:02] LABS: PLATELET SUFFICIENCY NORMAL (NORMAL)
--- NOTE | 2017-09-14 08:30 | NUR ---
[employer]ision Honing Machine Operator in to see patient. He remains on a vent. Discharge plan undetermined at this time.
--- NOTE | 2017-09-14 08:50 | NUR ---
Bioethics Consult: I was asked to see this patient due to end of life decisions. The patient's brother is requesting life support and vasopressors be discontinued. There is no Living Will or Durable Power of Agricultural Labor [employer] Manager for Health Care. After talking with the brother we talked with the had the patient's code status changed to DNRCC and the vasopressors have been discontinued.
--- NOTE | 2017-09-14 09:00 | NUR ---
AFTER DISCUSSION WITH THE PATIENT'S BROTHER ILIANA & GIRL FRIEND TAMELA THE DECISION WAS MADE TO MAKE HIM A DNRCC AND STOP THE PRESSORS AND THEN TERMINAL WEAN. PER THE BROTHER HE WANTS NOTHING FURTHER DONE & SHE IS IN AGREEMENT. SAP SPECIALIST & LOCAL TRUCK DRIVER HERE AND THEY ARE IN AGREEMENT THAT THIS IS A GOOD OPTION.
--- NOTE | 2017-09-14 09:18 | NUR ---
MORPHINE GIVEN FOR COMFORT PRIOR TO STOPPING THE PRESSORS.
--- NOTE | 2017-09-14 10:25 | NUR ---
SPOKE WITH DR SCHREIBER. ORDER FOR MORPHINE DRIP & THEN IN 1 HOUR GIVE ATIVAN AND REMOVE THE VENTILATOR. DR COLE HERE AND AWARE. MARKY VILLALPANDO FROM [employer]ICS HERE.
--- NOTE | 2017-09-14 10:36 | NUR ---
MORPHINE GIVEN FOR FAMILY COMFORT. PATIENT IS MORE ASHEN IN COLOR AND CLAMMY
--- NOTE | 2017-09-14 11:00 | NUR ---
MORPHINE DRIP AT 3 MG/HR GIVEN. BLOOD PRESSURE UPPER 80'S. CLAMMY & ASHEN COLOR.
--- NOTE | 2017-09-14 11:39 | NUR ---
TPN & LIPOSYN STOPPED.
--- NOTE | 2017-09-14 11:55 | NUR ---
ATIVAN GIVEN PRIOR TO EXTUBATION - FAMILY AT BEDSIDE
--- NOTE | 2017-09-14 12:40 | NUR ---
DR BARONE NOTIFIED OF PATIENT PASSING. FAMILY AT BEDSIDE
--- NOTE | 2017-09-14 12:56 | NUR ---
ONE CALL CALLED AND SPOKE WITH AALIYAH REF# [id number]
--- NOTE | 2017-09-14 14:46 | NUR ---
[facility] UPPER DENTURES WITH THE PATIENT.
== END 2017-09-14 12:43 | disposition expired | DRG 870 ==
LOC: ED 10:54 → EDHOLD 13:05 → ICCU 13:05 → EDHOLD 13:11 → 5E 13:18 → ICCU 22:03
PROVIDERS: Emergency Medicine; Internal Medicine; Internal Medicine Critical Care Medicine; Internal Medicine Nephrology; ADMIT Internal Medicine
PROC: 5A1955Z Respiratory Ventilation, Greater than 96 Consecutive Hours (ICD-10-PCS; 2017-09-06)
PROC: 0BH17EZ Insertion of Endotracheal Airway into Trachea, Via Natural or Artificial Opening (ICD-10-PCS; principal; 2017-09-07)
PROC: 5A09357 Assistance with Respiratory Ventilation, Less than 24 Consecutive Hours, Continuous Positive Airway Pressure (ICD-10-PCS; principal; 2017-09-07)
PROC: 02HV33Z Insertion of Infusion Device into Superior Vena Cava, Percutaneous Approach (ICD-10-PCS; 2017-09-08)
DX: A41.9 Sepsis, unspecified organism (principal); N17.0 Acute kidney failure with tubular necrosis; J96.21 Acute and chronic respiratory failure with hypoxia; R65.21 Severe sepsis with septic shock; E44.0 Moderate protein-calorie malnutrition; E87.3 Alkalosis; K29.71 Gastritis, unspecified, with bleeding; J18.9 Pneumonia, unspecified organism; J96.22 Acute and chronic respiratory failure with hypercapnia; I31.3 Pericardial effusion (noninflammatory); L03.116 Cellulitis of left lower limb; J44.1 Chronic obstructive pulmonary disease with (acute) exacerbation; I50.32 Chronic diastolic (congestive) heart failure; J44.0 Chronic obstructive pulmonary disease with (acute) lower respiratory infection; Z68.45 Body mass index [BMI] 70 or greater, adult; I95.9 Hypotension, unspecified; E83.39 Other disorders of phosphorus metabolism; I11.0 Hypertensive heart disease with heart failure; E83.42 Hypomagnesemia; E87.8 Other disorders of electrolyte and fluid balance, not elsewhere classified; D64.9 Anemia, unspecified; E87.6 Hypokalemia; Z99.81 Dependence on supplemental oxygen; R73.9 Hyperglycemia, unspecified; I34.0 Nonrheumatic mitral (valve) insufficiency; I71.4 Abdominal aortic aneurysm, without rupture; K57.30 Diverticulosis of large intestine without perforation or abscess without bleeding; T38.0X5A Adverse effect of glucocorticoids and synthetic analogues, initial encounter; Z66 Do not resuscitate; Z51.5 Encounter for palliative care; G93.89 Other specified disorders of brain; F41.1 Generalized anxiety disorder; E87.5 Hyperkalemia; J20.9 Acute bronchitis, unspecified; R14.0 Abdominal distension (gaseous); E66.8 Other obesity; Z84.1 Family history of disorders of kidney and ureter; Y92.89 Other specified places as the place of occurrence of the external cause; Z22.322 Carrier or suspected carrier of Methicillin resistant Staphylococcus aureus; Z82.5 Family history of asthma and other chronic lower respiratory diseases; Z87.891 Personal history of nicotine dependence; Z79.82 Long term (current) use of aspirin; Z79.899 Other long term (current) drug therapy